=== PATIENT | female | born 1985 | race African-American/Black ===

== ENCOUNTER 2020-09-30 13:28 | Emergency (ER) | payer MEDICAID ==
[~2020-09-30] VITALS: Ht 175.3 cm; Wt 59.0 kg
[2020-09-30] MEDS ORDERED: ACETAMINOPHEN/CODEINE#3 (300/30mg) TAB PO ONE (15:00)
[2020-09-30] MEDS ORDERED: cloNIDine HCL 0.1 MG TAB PO ONE (15:00)
[2020-09-30] MEDS ORDERED: KETOROLAC TROMETH 30 MG/ML 1ML VIAL IV ONE (15:00)
[2020-09-30] MEDS ORDERED: CLINDAMYCIN 600MG IV 50 ML IV ONE (15:00)
[2020-09-30 16:15] VITALS: BP 158/118
== END 2020-09-30 16:27 | disposition home or self-care (01) ==
LOC: ER 13:28
DX: H92.01 Otalgia, right ear (principal); K04.7 Periapical abscess without sinus; I10 Essential (primary) hypertension; F17.210 Nicotine dependence, cigarettes, uncomplicated
CPT/HCPCS: 96365; 96375; 99284; J1885; J3490

== ENCOUNTER 2021-04-16 09:53 | Emergency (ER) | payer MEDICAID, OTHER ==
[~2021-04-16] VITALS: Ht 175.3 cm; Wt 61.2 kg
[2021-04-16] MEDS ORDERED: ACETAMINOPHEN 325 MG TAB PO ONE (11:00)
[2021-04-16 12:46] VITALS: BP 164/127
== END 2021-04-16 13:19 | disposition home or self-care (01) ==
LOC: ER 09:53
DX: J06.9 Acute upper respiratory infection, unspecified (principal); N39.0 Urinary tract infection, site not specified; N76.0 Acute vaginitis; F17.210 Nicotine dependence, cigarettes, uncomplicated; Z20.822 Contact with and (suspected) exposure to COVID-19
CPT/HCPCS: 36415; 71045; 81002; 81025; 87426

== ENCOUNTER 2021-09-19 10:30 | Emergency (ER) | payer OTHER ==
[~2021-09-19] VITALS: Ht 167.6 cm; Wt 59.0 kg
[2021-09-19 11:09] LABS: Basophils # (auto) 0.1 10 ^3/uL (0-0.2); Basophils % (auto) 1.9 % (0.0-2.0); Eosinophils # (auto) 0 10 ^3/uL (0-0.8); Eosinophils % (auto) 0.9 % (0.0-7.0); Hematocrit 34.7 % (36.0-46.0); Hemoglobin 11.4 g/dL (12.2-16.2); Lymphocytes % (auto) 50.5 % (10.0-50.0); Mean Corpuscular Hemoglobin 31.6 pg (28.0-32.0); Mean Corpuscular Hgb Conc. 32.8 g/dL (32.0-36.0); Mean Corpuscular Volume 96.3 fL (80.0-100.0); Monocytes # (auto) 0.5 10 ^3/uL (0-1.3); Monocytes % (auto) 12.2 % (0.0-12.0); Neutrophils # (auto) 1.3 10 ^3/uL (1.6-8.6); Neutrophils % (auto) 34.5 % (37.0-80.0); Nucleated Red Blood Cells % 0.3 %; Red Blood Cells 3.61 10^6/uL (4.0-5.20); Red Cell Distribution Width 15.6 % (11.8-14.3); White Blood Cell 3.9 10^3/uL (4.4-10.8)
[2021-09-19 11:25] LABS: Albumin 4.4 g/dL (3.4-5.0); Calcium 9.6 mg/dL (8.5-10.1); Potassium 4.1 mmol/L (3.5-5.1)
[2021-09-19 11:30] LABS: BUN/Creatinine Ratio 9.7; Bilirubin, Total 0.3 mg/dL (0.2-1.0); Total Protein 9.1 g/dL (6.4-8.2)
[2021-09-19 15:19] LABS: Urine Bacteria FEW /hpf (None Seen); Urine Blood 2+ /uL (Negative); Urine Hyaline Cast FEW /lpf (0 - 2); Urine Mucus FEW (None Seen); Urine Specific Gravity 1.011 (1.001-1.035); Urine WBC 1 /hpf (0 - 5)
[2021-09-19 16:50] VITALS: BP 132/65
== END 2021-09-19 16:56 | disposition home or self-care (01) ==
LOC: ER 10:30
DX: D64.9 Anemia, unspecified (principal); R74.01 Elevation of levels of liver transaminase levels; I10 Essential (primary) hypertension; E11.9 Type 2 diabetes mellitus without complications; F17.210 Nicotine dependence, cigarettes, uncomplicated; Z20.822 Contact with and (suspected) exposure to COVID-19
CPT/HCPCS: 36415; 70486; 71045; 80053; 81001; 85025; 87426

== ENCOUNTER 2022-02-06 18:46 | Inpatient (IN) | payer OTHER ==
[~2022-02-06] VITALS: Ht 175.3 cm; Wt 57.8 kg
[2022-02-06 19:26] LABS: Basophils # (auto) 0.1 10 ^3/uL (0-0.2); Basophils % (auto) 0.9 % (0.0-2.0); Eosinophils # (auto) 0.1 10 ^3/uL (0-0.8); Hematocrit 35.3 % (36.0-46.0); Hemoglobin 11.8 g/dL (12.2-16.2); Lymphocytes # (auto) 0.6 10 ^3/uL (0.4-5.4); Lymphocytes % (auto) 11.5 % (10.0-50.0); Mean Corpuscular Hemoglobin 32.8 pg (28.0-32.0); Mean Corpuscular Hgb Conc. 33.4 g/dL (32.0-36.0); Mean Corpuscular Volume 98.3 fL (80.0-100.0); Monocytes # (auto) 0.6 10 ^3/uL (0-1.3); Neutrophils # (auto) 4.3 10 ^3/uL (1.6-8.6); Neutrophils % (auto) 76.6 % (37.0-80.0); Nucleated Red Blood Cells % 0.4 %; Red Blood Cells 3.59 10^6/uL (4.0-5.20); Red Cell Distribution Width 15.2 % (11.8-14.3); White Blood Cell 5.6 10^3/uL (4.4-10.8)
[2022-02-06 19:36] LABS: Urine Bacteria NONE SEEN /hpf (None Seen); Urine Blood 1+ /uL (Negative); Urine Hyaline Cast MANY /lpf (0 - 2); Urine Mucus FEW (None Seen); Urine Specific Gravity 1.031 (1.001-1.035); Urine WBC 4 /hpf (0 - 5)
[2022-02-06 19:42] LABS: Albumin 5.2 g/dL (3.4-5.0); BUN/Creatinine Ratio 11.6; Calcium 10.5 mg/dL (8.5-10.1); Potassium 4.3 mmol/L (3.5-5.1)
[2022-02-06 19:43] LABS: Amphetamine Screen, Urine NEGATIVE (NEGATIVE); Barbiturate Scree,Urine NEGATIVE (NEGATIVE); Benzodiazephine Screen, Urine NEGATIVE (NEGATIVE); Cannabinoid Screen, Urine POSITIVE (NEGATIVE); Cocaine Screen, Urine NEGATIVE (NEGATIVE); Phencyclidine Screen, Urine NEGATIVE (NEGATIVE)
[2022-02-06 19:45] LABS: Bilirubin, Total 0.5 mg/dL (0.2-1.0); Total Protein 10.1 g/dL (6.4-8.2)
[2022-02-06 19:51] LABS: Opiate Scree,Urine NEGATIVE (NEGATIVE)
[2022-02-06] MEDS ORDERED: D5W/SOD CHLO 0.9% 1,000 ML IV ONE (21:15)
[2022-02-06] MEDS ORDERED: ONDANSETRON HCL 4 MG/2 ML VIAL IV ONE (21:15)
[2022-02-06] MEDS ORDERED: MORPHINE SULFATE 4 MG/ML SYR/VIAL IV ONE (21:15)
[2022-02-06] MEDS ORDERED: THIAMINE 100mg/ml INJ (200mg/2ml VIAL) IV ONE ×2 (21:15→22:15)
[2022-02-06] MEDS ORDERED: SODIUM CHLORIDE 0.9% 1,000 ML IVB ONE (21:15)
[2022-02-06] MEDS ORDERED: FOLIC ACID 1 MG in D5W 5% 50 ML INJ ONE (21:15)
[2022-02-06 22:53] LABS: Magnesium 2.3 mg/dL (1.6-2.6)
[2022-02-07] MEDS ORDERED: PANTOPRAZOLE 40 MG/10 ML VIAL INJ IV ONE (00:45)
[2022-02-07] MEDS ORDERED: SODIUM CHLORIDE 0.9% 1,000 ML IV ONE ×2 (00:45)
[2022-02-07 05:00] VITALS: BP 144/104
[2022-02-07] MEDS: MORPHINE SULFATE 4 MG/ML SYR/VIAL IV PRN ×5 (05:40→23:53)
[2022-02-07] MEDS ORDERED: METO-158 PO (06:43)
[2022-02-07] MEDS ORDERED: LOSA25TA38 PO (06:43)
[2022-02-07] MEDS ORDERED: GABA-339 PO (06:43)
[2022-02-07] MEDS ORDERED: MONT5CHW23 PO (06:44)
[2022-02-07 09:00] VITALS: BP 159/111
[2022-02-07 09:16] LABS: Basophils # (auto) 0 10 ^3/uL (0-0.2); Basophils % (auto) 0.7 % (0.0-2.0); Eosinophils # (auto) 0 10 ^3/uL (0-0.8); Eosinophils % (auto) 0.8 % (0.0-7.0); Hematocrit 29.4 % (36.0-46.0); Hemoglobin 9.6 g/dL (12.2-16.2); Lymphocytes # (auto) 0.8 10 ^3/uL (0.4-5.4); Lymphocytes % (auto) 16.2 % (10.0-50.0); Mean Corpuscular Hemoglobin 32.1 pg (28.0-32.0); Mean Corpuscular Hgb Conc. 32.7 g/dL (32.0-36.0); Monocytes # (auto) 0.6 10 ^3/uL (0-1.3); Monocytes % (auto) 11.8 % (0.0-12.0); Neutrophils # (auto) 3.3 10 ^3/uL (1.6-8.6); Neutrophils % (auto) 70.5 % (37.0-80.0); Nucleated Red Blood Cells % 0.2 %; Red Cell Distribution Width 15.2 % (11.8-14.3); White Blood Cell 4.7 10^3/uL (4.4-10.8)
[2022-02-07 09:34] LABS: Calcium 8.8 mg/dL (8.5-10.1); Potassium 3.5 mmol/L (3.5-5.1)
[2022-02-07 09:43] LABS: BUN/Creatinine Ratio 15.2; Bilirubin, Total 0.5 mg/dL (0.2-1.0)
[2022-02-07] MEDS: PANTOPRAZOLE 40 MG/10 ML VIAL INJ IV SCH (10:00)
[2022-02-07] MEDS: MULTIPLE VITAMIN TAB PO SCH (10:00)
[2022-02-07] MEDS: ONDANSETRON HCL 4 MG/2 ML VIAL IV PRN ×4 (11:30→23:52)
[2022-02-07] MEDS: SODIUM CHLORIDE 0.9% 1,000 ML IV SCH ×2 (11:30→17:38)
[2022-02-07 13:00] VITALS: BP 139/106
[2022-02-07] MEDS: FOLIC ACID 1 MG, MULTIPLE VITAMIN 10 ML, MAGNESIUM SULF SDV 50% 8 MEQ, THIAMINE INJ 100... INJ SCH ×5 (15:32)
[2022-02-07 17:00] VITALS: BP 151/108
[2022-02-07 21:37] VITALS: BP 150/113
[2022-02-07] MEDS: METOPROLOL TARTRATE 50 MG TAB PO SCH (21:38)
[2022-02-08] MEDS: SODIUM CHLORIDE 0.9% 1,000 ML IV SCH ×3 (00:50→14:10)
[2022-02-08 04:52] VITALS: BP 154/64
[2022-02-08 07:48] LABS: Basophils # (auto) 0 10 ^3/uL (0-0.2); Basophils % (auto) 1.3 % (0.0-2.0); Eosinophils # (auto) 0 10 ^3/uL (0-0.8); Eosinophils % (auto) 1.3 % (0.0-7.0); Hematocrit 30.6 % (36.0-46.0); Hemoglobin 10.1 g/dL (12.2-16.2); Lymphocytes # (auto) 0.9 10 ^3/uL (0.4-5.4); Lymphocytes % (auto) 33.4 % (10.0-50.0); Mean Corpuscular Hemoglobin 32.9 pg (28.0-32.0); Mean Corpuscular Hgb Conc. 33.1 g/dL (32.0-36.0); Mean Corpuscular Volume 99.3 fL (80.0-100.0); Monocytes # (auto) 0.3 10 ^3/uL (0-1.3); Monocytes % (auto) 9.9 % (0.0-12.0); Neutrophils # (auto) 1.4 10 ^3/uL (1.6-8.6); Neutrophils % (auto) 54.1 % (37.0-80.0); Nucleated Red Blood Cells % 0.4 %; Red Blood Cells 3.08 10^6/uL (4.0-5.20); White Blood Cell 2.7 10^3/uL (4.4-10.8)
[2022-02-08 08:04] LABS: % Iron Saturation 35.1 % (15-50)
[2022-02-08 08:05] LABS: Albumin 4.2 g/dL (3.4-5.0); BUN/Creatinine Ratio 13.7; Bilirubin, Total 0.9 mg/dL (0.2-1.0); Calcium 9.3 mg/dL (8.5-10.1); Phosphorus 1.3 mg/dL (2.5-4.90); Total Protein 7.9 g/dL (6.4-8.2)
[2022-02-08] MEDS ORDERED: LORazepam 2MG/ML-1ML VIAL IV PRN (08:15)
[2022-02-08] MEDS ORDERED: LORazepam 2MG/ML-1ML VIAL IV ONE (08:15)
[2022-02-08 08:20] VITALS: BP 150/83
[2022-02-08 08:22] LABS: Potassium 2.8 mmol/L (3.5-5.1)
[2022-02-08] MEDS: MULTIPLE VITAMIN TAB PO SCH (09:02)
[2022-02-08] MEDS: METOPROLOL TARTRATE 50 MG TAB PO SCH (09:03)
[2022-02-08] MEDS: PANTOPRAZOLE 40 MG/10 ML VIAL INJ IV SCH (09:03)
[2022-02-08] MEDS ORDERED: POTASSIUM CHL 10MEQ/50ML 50 ML IV SCH (09:30)
[2022-02-08] MEDS ORDERED: QUEtiapine FUMARATE 25 MG TAB PO ONE (10:00)
[2022-02-08] MEDS ORDERED: POTASSIUM CHL 20 Meq TABLET PO SCH (10:45)
[2022-02-08] MEDS: FOLIC ACID 1 MG, MULTIPLE VITAMIN 10 ML, MAGNESIUM SULF SDV 50% 8 MEQ, THIAMINE INJ 100... INJ SCH ×5 (12:00)
[2022-02-08] MEDS ORDERED: chlordiazePOXIDE HCL 25 MG CAP PO SCH (14:00)
[2022-02-08] MEDS ORDERED: QUEtiapine FUMARATE 25 MG TAB PO SCH (22:00)
[2022-02-09 13:18] LABS: Hepatitis A Ab IgM Negative; Hepatitis B Core IgM Negative; Hepatitis C Antibody Negative (Negative)
[2022-02-09 13:25] LABS: Folate (Folic Acid) > 24.00 ng/mL (5.38-24)
== END 2022-02-08 21:10 | disposition left against medical advice (07) | DRG 282 ==
LOC: ER 18:46 → OVERFLOW 02-07 00:45 → WEST WING 02-07 05:01
PROVIDERS: ADMIT Internal Medicine; ATTEND Internal Medicine
DX: K85.20 Alcohol induced acute pancreatitis without necrosis or infection (principal); N17.9 Acute kidney failure, unspecified; D69.6 Thrombocytopenia, unspecified; K83.8 Other specified diseases of biliary tract; D64.9 Anemia, unspecified; E11.9 Type 2 diabetes mellitus without complications; D25.9 Leiomyoma of uterus, unspecified; E78.5 Hyperlipidemia, unspecified; F12.90 Cannabis use, unspecified, uncomplicated; F17.210 Nicotine dependence, cigarettes, uncomplicated; Z53.29 Procedure and treatment not carried out because of patient's decision for other reasons; E83.52 Hypercalcemia; R74.01 Elevation of levels of liver transaminase levels; F10.239 Alcohol dependence with withdrawal, unspecified; Z20.822 Contact with and (suspected) exposure to COVID-19; I10 Essential (primary) hypertension; K52.9 Noninfective gastroenteritis and colitis, unspecified; R63.4 Abnormal weight loss; R79.89 Other specified abnormal findings of blood chemistry; Z68.1 Body mass index [BMI] 19.9 or less, adult; Z79.899 Other long term (current) drug therapy; Z80.8 Family history of malignant neoplasm of other organs or systems; Z83.3 Family history of diabetes mellitus; Y90.9 Presence of alcohol in blood, level not specified
CPT/HCPCS: 36415; 74181; 80053; 80074; 80307; 80320; 81001; 82140; 82150; 82378; 82607; 82746; 82977; 83540; 83550; 83605; 83690; 83735; 84100; 84425; 84478; 84702; 85025; 86301; 86304; 86644; 86645; 86703; 96361; 96365; 96375; C9113; G0378; J2405; J7060

== ENCOUNTER 2022-02-08 22:33 | Emergency (ER) | payer OTHER ==
[~2022-02-08] VITALS: Ht 175.3 cm; Wt 51.3 kg
[~2022-02-08 22:33] MED LIST: GABA-339 PO; LOSA25TA38 PO; METO-158 PO; MONT5CHW23 PO
[2022-02-08 22:45] VITALS: BP 158/106
[2022-02-09 00:07] LABS: Albumin 4.2 g/dL (3.4-5.0); BUN/Creatinine Ratio 13.1; Basophils # (auto) 0 10 ^3/uL (0-0.2); Basophils % (auto) 0.8 % (0.0-2.0); Calcium 9.5 mg/dL (8.5-10.1); Eosinophils # (auto) 0 10 ^3/uL (0-0.8); Eosinophils % (auto) 1.1 % (0.0-7.0); Hematocrit 29.8 % (36.0-46.0); Hemoglobin 9.8 g/dL (12.2-16.2); Lymphocytes % (auto) 27.5 % (10.0-50.0); Mean Corpuscular Hemoglobin 32.6 pg (28.0-32.0); Mean Corpuscular Hgb Conc. 32.9 g/dL (32.0-36.0); Mean Corpuscular Volume 99.2 fL (80.0-100.0); Monocytes # (auto) 0.6 10 ^3/uL (0-1.3); Monocytes % (auto) 16.6 % (0.0-12.0); Neutrophils # (auto) 1.9 10 ^3/uL (1.6-8.6); Nucleated Red Blood Cells % 0.3 %; Potassium 3.4 mmol/L (3.5-5.1); Red Blood Cells 3.01 10^6/uL (4.0-5.20); Red Cell Distribution Width 15.1 % (11.8-14.3); White Blood Cell 3.5 10^3/uL (4.4-10.8)
[2022-02-09 00:10] LABS: Bilirubin, Total 0.4 mg/dL (0.2-1.0); Total Protein 7.9 g/dL (6.4-8.2)
== END 2022-02-09 01:16 | disposition left against medical advice (07) ==
LOC: ER 22:35
DX: R10.9 Unspecified abdominal pain (principal); Z53.21 Procedure and treatment not carried out due to patient leaving prior to being seen by health care provider
CPT/HCPCS: 36415; 80053; 83690; 85025

== ENCOUNTER 2022-02-17 19:30 | Emergency (ER) | payer OTHER ==
[~2022-02-17] VITALS: Ht 175.3 cm; Wt 53.5 kg
[2022-02-17 20:27] LABS: Basophils # (auto) 0.1 10 ^3/uL (0-0.2); Eosinophils # (auto) 0 10 ^3/uL (0-0.8); Monocytes # (auto) 0.9 10 ^3/uL (0-1.3)
[2022-02-17 20:29] LABS: Basophils % (auto) 1.4 % (0.0-2.0); Eosinophils % (auto) 0.6 % (0.0-7.0); Hematocrit 23.9 % (36.0-46.0); Hemoglobin 7.8 g/dL (12.2-16.2); Lymphocytes # (auto) 1.4 10 ^3/uL (0.4-5.4); Lymphocytes % (auto) 21.5 % (10.0-50.0); Mean Corpuscular Hemoglobin 31.5 pg (28.0-32.0); Mean Corpuscular Hgb Conc. 32.6 g/dL (32.0-36.0); Mean Corpuscular Volume 96.5 fL (80.0-100.0); Neutrophils # (auto) 4.2 10 ^3/uL (1.6-8.6); Neutrophils % (auto) 63.5 % (37.0-80.0); Nucleated Red Blood Cells % 0.1 %; Red Blood Cells 2.48 10^6/uL (4.0-5.20); Red Cell Distribution Width 14.8 % (11.8-14.3); White Blood Cell 6.6 10^3/uL (4.4-10.8)
[2022-02-17 20:42] LABS: Albumin 2.9 g/dL (3.4-5.0); BUN/Creatinine Ratio 7.6; Calcium 7.5 mg/dL (8.5-10.1); Potassium 3.4 mmol/L (3.5-5.1)
[2022-02-17 20:45] LABS: Bilirubin, Total 0.1 mg/dL (0.2-1.0); Total Protein 6.1 g/dL (6.4-8.2)
[2022-02-17] MEDS ORDERED: FUROSEMIDE 40 MG/4 ML VIAL IV ONE (21:30)
[2022-02-17] MEDS ORDERED: FUROSEMIDE 20 MG/2 ML VIAL IV ONE (21:45)
[2022-02-17] MEDS ORDERED: FUROSEMIDE 100 MG/10ML VIAL IV ONE (23:15)
[2022-02-17] MEDS ORDERED: FURO1TAB33 PO (23:32)
[2022-02-18 00:13] VITALS: BP 160/110
== END 2022-02-18 00:39 | disposition home or self-care (01) ==
LOC: ER 19:32
DX: R60.9 Edema, unspecified (principal); D64.9 Anemia, unspecified; E11.9 Type 2 diabetes mellitus without complications; E78.5 Hyperlipidemia, unspecified; I10 Essential (primary) hypertension; F17.210 Nicotine dependence, cigarettes, uncomplicated
CPT/HCPCS: 36415; 80053; 83880; 85025; 85379; 96374; 99283; J1940

== ENCOUNTER 2023-11-29 21:11 | Emergency (ER) | payer MEDICAID, OTHER ==
[~2023-11-29] VITALS: Ht 162.6 cm; Wt 54.7 kg
[~2023-11-29 21:11] MED LIST changes: +FURO1TAB33 PO; +LOSA25TA15 PO; -LOSA25TA38 PO; +MONT5CHW12 PO; -MONT5CHW23 PO
[2023-11-29] MEDS ORDERED: SODIUM CHLORIDE 0.9% 1,000 ML IV ONE (22:00)
[2023-11-29 23:10] VITALS: BP 145/88; PULSE 85; RESP 18; TEMP 98.4; O2SAT 100
[2023-11-29 23:39] LABS: Hematocrit 38.9 % (36.0-46.0); Hemoglobin 12.5 g/dL (12.2-16.2); Mean Corpuscular Hgb Conc. 32.2 g/dL (32.0-36.0); Mean Corpuscular Volume 96.1 fL (80.0-100.0); Red Blood Cells 4.05 10^6/uL (4.0-5.20); Red Cell Distribution Width 15.9 % (11.8-14.3); White Blood Cell 4.1 10^3/uL (4.4-10.8)
[2023-11-29 23:43] LABS: Band Neutrophils % (manual) 0; Basophils % (manual) 0 (0.0-2.0); Blast Cells 0; Eosinophils % (manual) 0 (0-7); Metamyelocytes % 0; Myelocytes % 0; Promyelocytes % 0; Reactive Lymphocytes 0
[2023-11-29 23:54] LABS: Alanine Aminotransferase 184 U/L (7-40); Albumin 5.3 g/dL (3.2-4.8); Alkaline Phosphatase 203 U/L (46-116); Anion Gap 14 (5-15); Aspartate Aminotransferase 768 U/L (13-40); BUN/Creatinine Ratio 20.6 (10.0-20.0); Blood Urea Nitrogen 13 mg/dL (9-23); Calcium 9.7 mg/dL (8.7-10.4); Carbon Dioxide 22 mmol/L (20-30); Chloride 103 mmol/L (98-107); Glucose 88 mg/dL (74-106); Potassium 3.9 mmol/L (3.5-5.1); Sodium 139 mmol/L (136-145)
[2023-11-29 23:55] LABS: Bilirubin, Total 0.3 mg/dL (0.2-1.0); Total Protein 8.5 g/dL (5.7-8.2)
[2023-11-30 00:33] LABS: Lymphocytes % (manual) 60 (10.0-50.0); Monocytes % (manual) 6 (0-12); Platelet Estimate Adequate
== END 2023-11-30 01:19 | disposition home or self-care (01) ==
LOC: ER 21:11 → EDBD 21:11 → ER 11-30 01:06
DX: F10.129 Alcohol abuse with intoxication, unspecified (principal); R10.2 Pelvic and perineal pain; R51.9 Headache, unspecified; E11.9 Type 2 diabetes mellitus without complications; E78.5 Hyperlipidemia, unspecified; I10 Essential (primary) hypertension; Y90.8 Blood alcohol level of 240 mg/100 ml or more
CPT/HCPCS: 36415; 70450; 72125; 80053; 84702; 85007; 85027; 96360; 99284; J7030

== ENCOUNTER 2025-01-15 10:58 | Inpatient (IN) | payer MEDICAID ==
[~2025-01-15] VITALS: Ht 172.7 cm; Wt 68.7 kg
[~2025-01-15 10:58] MED LIST changes: +AUG875T PO; +DOXY1CAP57 PO; +FLUO-125 PO; +HYDR-4902 PO; +LOSA-533 PO; -LOSA25TA15 PO; +MET500T PO; +ZOFR4T PO
--- NOTE | 2025-01-15 11:24 | ED.PDOC ---
History of Present Illness HPI Comments 39-year-old female with PMHx HTN, Insomnia, Anxiety, Depression presents with a chief complaint of seizure activity. Per EMS, family states that patient was sitting at home and "started to slump over and tense up". Family describes patient having a tonic-clonic like seizure that lasted 3 minutes. Patient cannot recall the events. Patient has only stated complaint of headache at this time. Patient mentions that she has never had a seizure before. Patient does have oral trauma. No other symptoms or modifying factors present at this time. Chief Complaint: Seizure Time Seen by MD: 11:10 Primary Care Provider: UNKNOWN Reviewed Notes: Medications, Allergies Allergies: Coded Allergies: NO KNOWN ALLERGIES (Unverified , 09/30/20) Home Meds Active Scripts Amoxicillin & Pot Clavulanate (AUGMENTIN TABLET) 875 Mg Tb, 875 MG PO BID for 5 Days, #10 TAB Prov:BRYNN ATKINS GARMENT PRESSER 07/10/24 Hydrocodone-Acetaminophen (Hydrocodone Bitartrate/AC 5-325 mg) 1 Tab Tab, 1 TAB PO QID, #20 TAB Prov:NUZHAT DOYLE MD 05/15/24 Ondansetron Odt 4MG Tab (ZOFRAN PO) 4 Mg Tb, 4 MG PO QID PRN, #20 TAB ODT TAB-DISSOLVE IN MOUTH, THEN SWALLOW Prov:NUZHAT DOYLE MD 05/15/24 Doxycycline Monohydrate (Doxycycline Monohydrate) 100 Mg Cap, 1 CAP PO BID for 10 Days, #20 CAP Prov:PALACIOSPATRICIOALDA Q YARD PILOT 03/12/24 Metronidazole (Metronidazole) 500 Mg Tab, 1 TAB PO TID for 10 Days, #30 TAB Prov:PITO PALACIOSA Q YARD PILOT 03/12/24 Furosemide (Lasix) 20 Mg Tb, 1 TAB PO DAILY for 5 Days, #5 TAB 1 Refill Prov:FAMILIA MALDONADO DO 02/17/22 Reported Medications Fluoxetine Hcl (Fluoxetine Hcl) 20 Mg Cap, 1 TAB PO DAILY for 30 Days, MG 05/13/24 Montelukast Sodium (Singulair) 5 Mg Chw, 10 MG PO, TAB 02/07/22 Gabapentin (Gabapentin) 600 Mg Tab, 600 MG PO DAILY for 30 Days, MG 02/07/22 Losartan Potassium (Losartan Potassium) 25 Mg Tab, 25 MG PO DAILY for 30 Days, MG 3/12/22 Metoprolol Tartrate (Metoprolol Tartrate) 50 Mg Tab, 50 MG PO BID for 30 Days, MG 02/07/22 Information Source: Patient, Emergency Med Personnel Mode of Arrival: EMS Severity: Moderate Timing: Minutes Duration: Since onset Prehospital treatment: None Past Medical History PAST MEDICAL HISTORY: Anemia, Anxiety, Depression, DM, High Lipids, HTN Past Medical History (Other): Insomnia Surgical History (Other): Fibroids ASSOCIATE ACCOUNT EXECUTIVE History: Uterine Fibroids Family History Family History: Family hx of Cancer, Family hx of HTN Social History Smoker: Cigarettes Alcohol: Occasionally Drugs: Marijuana Lives In: Home Constitutional: denies: chills, diaphoresis, fatigue, fever, malaise, sweats, weakness, others EENTM: denies: blurred vision, double vision, ear bleeding, ear discharge, ear drainage, ear pain, ear ringing, eye pain, eye redness, hearing loss, mouth pain, mouth swelling, nasal discharge, nose bleeding, nose congestion, nose pain, photophobia, tearing, throat pain, throat swelling, voice changes, others Respiratory: denies: cough, hemoptysis, orthopnea, SOB at rest, shortness of breath, SOB with excertion, stridor, wheezing, others Cardiovascular: denies: chest pain, dizzy spells, diaphoresis, Dyspnea on exertion, edema, irregular heart beat, left arm pain, lightheadedness, palpitations, PND, syncope, others Gastrointestinal: denies: abdomen distended, abdominal pain, blood streaked bowels, constipated, diarrhea, dysphagia, difficulty swallowing, hematemesis, melena, nausea, poor appetite, poor fluid intake, rectal bleeding, rectal pain, vomiting, others Genitourinary: denies: abnormal vagina bleeding, burning, dyspareunia, dysuria, flank pain, frequency, hematuria, incontinence, pain, , vagina d ischarge, urgency, others Neurological: reports: seizure; denies: dizziness, fainting, headache, left sided numbness, left sided weakness, numbness, paresthesia, pre-existing deficit, right sided numbness, right sided weakness, speech problems, tingling, tremors, weakness, others Musculoskeletal: denies: back pain, gout, joint pain, joint swelling, muscle pain, muscle stiffness, neck pain, others Integumetry: denies: bruises, change in color, change in hair/nails, dryness, laceration, lesions, lumps, rash, wounds, others Allergic/Immunocompromised: denies: Difficulty Healing, Frequent Infections, Hives, Itching, others Hematologic/Lymphatic: denies: anemia, blood clots, easy bleeding, easy bruising, swollen glands, others Endocrine: denies: excessive hunger, excessive sweating, excessive thirst, excessive urination, flushing, intolerance to cold, intolerance to heat, unexplained weight gain, unexplained weight loss, others Psychiatric: denies: anxiety, bipolar disorder, depression, hopeless, panic disorder, schizophrenia, sleepless, suicidal, others All Other Systems: Reviewed and Negative Physical Exam General Appearance: Moderate Distress, Normal HEENT: Normal ENT Inspection, Pharynx Normal, TMs Normal Neck: Full Range of Motion, Non-Tender, Normal, Normal Inspection Respiratory: Chest Non-Tender, Lungs Clear, No Accessory Muscle Use, No Respi ratory Distress, Normal Breath Sounds Cardiovascular: No Edema, No JVD, No Murmur, No Gallop, Normal Peripheral Pulses, Regular Rate/Rhythm Breast Exam: Deferred Gastrointestinal: No Organomegaly, Non Tender, No Pulsatile Mass, Normal Bowel Sounds, Soft Genitalia: Deferred Pelvic: Deferred Rectal: Deferred Extremities: No calf tenderness, Normal capillary refill, Normal inspection, Normal range of motion, Non-tender, No pedal edema Musculoskeletal : Apperance: Normal Neurologic: project internship II-XII nml as Tested, Disoriented (Postictal), No Motor Deficits, Normal Affect, Normal Mood, No Sensory Deficits Cerebellar Function: NOT DONE Reflexes: NOT DONE Skin: Dry, Normal Color, Warm, Wounds (Tongue injury) Peripheral Pulses: 3+ Radial (R), 3+ Radial (L) Lymphatic: No Adenopathy Was a procedure done? Was a procedure done?: No Differential Dx Considerations may include: Seizure Electrolyte imbalance X-Ray, Labs, Meds, VS Vital Signs Date Time Temp Pulse Resp B/P (MAP) Pulse Ox O2 Delivery O2 Flow Rate FiO2 01/15/25 11:25 96 Room Air* 0 21 01/15/25 11:23 102 25 140/98 (112) 98 01/15/25 11:02 98.1 100 16 154/122 (133) 96 Patient is slightly disoriented. Had a seizure. First time she had a seizure. Vitals stable. She does have tongue injury. No sign of any other injuries. Slightly tachycardia. Blood pressure elevated. History of hypertension. Saturation pristine on room air. EKG reviewed does not show any acute changes. Explained to the patient. Continue cardiac monitoring. Time of 1ST Reevaluation: 11:40 Reevaluation 1ST: Unchanged Patient Education/Counseling: Diagnosis, Treatment, Prognosis Family Education/Counseling: Diagnosis, Treatment, Prognosis Departure 1 Departure Time of Disposition: 11:43 Impression: Primary Impression: Metabolic encephalopathy Additional Impression: Seizure Disposition: ADMITTED INPATIENT Admit to: Med Surg Condition: Guarded Critical Care Note Critical Care Time?: No Stability Stability form required: No Heart Score Heart Score: Heart Score Response (Comments) Value History Slightly Suspicious 0 EKG Normal 0 Age <45 0 Risk Factors 1 or 2 risk factors 1 Troponin N/A 0 Total 1 I personally scribed for DIANE DIXON MD ([email or web address]) on 01/15/25 at 11:24. Electronically submitted by Jose Kilgore ([email or web address]). DIANE DIXON MD Jan 15, 2025 11:24
[2025-01-15 11:25] VITALS: O2SAT 96
[2025-01-15] MEDS: SODIUM CHLORIDE 0.9% 1,000 ML IV ONE (11:56)
[2025-01-15 12:18] LABS: Anion Gap 12 (5-15); Carbon Dioxide 25 mmol/L (20-31); Chloride 99 mmol/L (98-107); Potassium 4.2 mmol/L (3.5-5.1)
[2025-01-15 12:20] LABS: Calcium 10.1 mg/dL (8.7-10.4)
[2025-01-15 12:24] LABS: Sodium 136 mmol/L (136-145)
[2025-01-15 12:25] LABS: BUN/Creatinine Ratio 9.2 (10.0-20.0); Glucose 93 mg/dL (74-106)
--- NOTE | 2025-01-15 12:25 | DVH ---
CT HEAD WITHOUT CONTRAST INDICATION: seizure EXAM DATE: 01/15/2025 12:08 PM COMPARISON: CT HEAD WITHOUT CONTRAST on DOS: 11/29/23 RADIATION DOSE: CTDIvol: 56 mGy, DLP: 994 mGy*cm PROCEDURE: CT scans of the head were obtained from the vertex to the skull base. Sagittal and coronal reconstructions were provided. All CT scans at this medical facility are performed using dose modulation techniques as appropriate t o a performed exam including the following: Automated exposure control was utilized; adjustment of th e MA and/or KV according to patient size; and use of iterative reconstruction technique. FINDINGS: There is sulcal and ventricular prominence. The brainshows normal morphology and helms-whit e matter differentiation, without intracranial hemorrhage, extra-axial fluid collection, mass effect or acute large vessel infarct. The ventricles are normal in size. The basal cisterns are patent. The skull and visible facial bones are intact. The paranasal sinuses, mastoid air cells and middle ear ca vities are well-aerated. The soft tissues of the scalp are unremarkable. IMPRESSION: No acute intracranial abnormality.
[2025-01-15] MEDS: LORazepam 2MG/ML-1ML VIAL IV ONE (12:27)
[2025-01-15 12:29] LABS: Blood Urea Nitrogen 8 mg/dL (9-23)
[2025-01-15 14:13] LABS: Basophils # (auto) 0 10 ^3/uL (0-0.2); Basophils % (auto) 0.5 % (0.0-2.0); Eosinophils # (auto) 0 10 ^3/uL (0-0.8); Eosinophils % (auto) 0.5 % (0.0-7.0); Hematocrit 33.1 % (36.0-46.0); Hemoglobin 10.8 g/dL (12.2-16.2); Lymphocytes # (auto) 1.6 10 ^3/uL (0.4-5.4); Lymphocytes % (auto) 29.1 % (10.0-50.0); Mean Corpuscular Hemoglobin 29.2 pg (28.0-32.0); Mean Corpuscular Hgb Conc. 32.6 g/dL (32.0-36.0); Mean Corpuscular Volume 89.8 fL (80.0-100.0); Monocytes # (auto) 0.8 10 ^3/uL (0-1.3); Monocytes % (auto) 14.9 % (0.0-12.0); Nucleated Red Blood Cells % 0.2 %; Platelet Count (auto) 185 10^3/uL (140-450); Red Blood Cells 3.68 10^6/uL (4.0-5.20); Red Cell Distribution Width 15.8 % (11.8-14.3); White Blood Cell 5.5 10^3/uL (4.4-10.8)
[2025-01-15 14:47] LABS: Urine Bacteria None Seen /hpf (None Seen)
[2025-01-15 15:07] LABS: Urine Blood Negative /uL (Negative); Urine Clarity Clear (Clear); Urine Color Light-Yellow (Yellow); Urine Mucus FEW (None Seen); Urine Protein, UAD TRACE (Negative); Urine Specific Gravity 1.014 (1.001-1.035); Urine Squamous Epithelial Cell FEW /hpf (<5); Urine Urobilinogen Normal (Negative); Urine WBC 1 /HPF (0-5)
[2025-01-15] MEDS ORDERED: QUET50TA27 PO (15:21)
[2025-01-15] MEDS ORDERED: HYDR-3682 PO (15:21)
[2025-01-15] MEDS ORDERED: FLUO60TA PO (15:21)
[2025-01-15] MEDS ORDERED: OLAN1TAB82 PO (15:23)
[2025-01-15] MEDS ORDERED: OXCA300T50 PO (15:32)
[2025-01-15] MEDS ORDERED: OXCA600T40 PO (15:32)
[2025-01-15] MEDS ORDERED: ONDANSETRON HCL 4 MG/2 ML VIAL IV PRN (15:45)
[2025-01-15] MEDS ORDERED: NITROGLYCERIN 0.4 MG SL TAB SL PRN (15:45)
[2025-01-15] MEDS ORDERED: MORPHINE SULFATE INJ 2 MG/ml SYRG IV PRN (15:45)
[2025-01-15] MEDS ORDERED: ACETAMINOPHEN 325 MG TAB PO PRN (15:45)
[2025-01-15] MEDS ORDERED: DOCUSATE SOD 100 MG CAP PO PRN (15:45)
--- NOTE | 2025-01-15 15:47 | DVHHP2 ---
History of Present Illness Reason for Visit: Seizure History of Present Illness Navi Gambino is a 39-year-old female with past medical history hypertension, anxiety, depression, and hyperlipidemia, who came in due to a seizure. Patient states she remembers trying to eat breakfast, she was having a hard luisa due to sore throat and bump on left side of tongue. The the next thing she can remember is waking up to EMS being at her house. Patient is a poor historian with her medical history. She denies having a history of seizures, but does take Oxcarbazepine and she is not sure why or what her dose. Patient is also prescribed Quetiapine, but she states she doesn't take it as prescribed because she doesn't like the way it makes her feel. Cardiovascular: HTN, hyperipidemia Psych: Anxiety, Depression Past Surgical History: Other (Uterine fibroid removal) Smoke: <1 pack per day ALCOHOL: none Drugs: None Lives: Friends Domestic Violence: Neg Review of Systems Constitutional: No: Fever, Chills, Sweats, Weakness, Malaise, Other Eyes: No: Pain, Vision change, Conjunctivae inflammation, Eyelid inflammation, Other, Redness ENT: No: Ear pain, Ear discharge, Nose pain, Nose discharge, Nose congestion, Mouth pain, Mouth swelling, Throat pain, Throat swelling, Other Respiratory: No: Cough, Dry, Shortness of breath, SOB with excertion, Wheezing, Hemoptysis, Pleuritic Pain, Sputum, Wheezing, Other Cardiovascular: No: Chest Pain, Palpitations, Orthopnea, Paroxysmal Noc. Dyspnea, Edema, Lt Headedness, Other Gastrointestinal: No: Nausea, Vomiting, Abdominal Pain, Diarrhea, Constipation, Melena, Hematochezia, Other Genitourinary: No Dysuria, No Frequency, No Incontinence, No Hematuria, No Retention, No Other Musculoskeletal: No: other, neck pain, shoulder pain, arm pain, back pain, hand pain, leg pain, foot pain Skin: No: Rash, Lesions, Jaundice, Bruising, Other Neurological: Seizures; No: Weakness, Numbness, Incoordination, Change in speech, Confusion, Other Allergies: Coded Allergies: NO KNOWN ALLERGIES (Unverified , 09/30/20) Medications Current Medications Medications Dose Ordered Sig/Antonio Route Start Time Stop Time Status Last Admin Dose Admin Losartan Potassium 25 mg DAILY PO 01/16/25 10:00 UNV Patient Own Medication 1 tab DAILY PO 01/16/25 10:00 UNV Patient Own Medication 1 tab BID PO 01/15/25 22:00 UNV Patient Own Medication 1 tab DAILY PO 01/16/25 10:00 UNV Exam Vital Signs Vital Signs Date Time Temp Pulse Resp B/P (MAP) Pulse Ox O2 Delivery O2 Flow Rate FiO2 01/15/25 15:00 90 16 145/104 (118) 98 01/15/25 13:00 98.0 98.0 01/15/25 11:25 Room Air* 0 21 General Appearance: Alert, Oriented X3, Cooperative HEENT: Atraumatic, PERRLA, EOMI, Other (C/O throat pain and pain to side of tongue due to sore) Respiratory: Clear to auscultation, Normal air movement Cardiovascular: Regular rate, Normal S1, Normal S2, No murmurs Abdominal: Normal bowel sounds, Soft, No tenderness, No hepatospenomegaly Extremities: No clubbing, No cyanosis, No edema, Normal pulses Skin: No rashes, No breakdown, No significant lesion Neuro: Normal gait, Normal speech, Strength at 5/5 X4 ext Psych/Mental Status: Mental status NL, Mood NL Labs/Xrays Labs Test 01/15/25 14:37 01/15/25 13:33 01/15/25 12:00 Range/Units Urine Color Light-yellow Yellow Urine Clarity Clear Clear Urine pH 6.0 5.0-9.0 Urine Specific [place] 1.014 1.001-1.035 Urine Protein Trace H Negative Urine Ketones Negative Negative Urine Blood Negative Negative /uL Urine Nitrite Negative Negative Urine Bilirubin Negative Negative Urine Urobilinogen Normal Negative mg/dL Urine Leukocyte Esterase Negative Negative /uL Urine RBC 1 0 - 4 /hpf Urine Microscopic WBC 1 0-5 /HPF Urine Squamous Epithelial Cells Few <5 /hpf Urine Bacteria None seen None Seen /hpf Urine Mucus Few None Seen Urine Glucose Normal Normal mg/dL White Blood Count 5.5 4.4-10.8 10^3/uL Red Blood Count 3.68 L 4.0-5.20 10^6/uL Hemoglobin 10.8 L 12.2-16.2 g/dL Hematocrit 33.1 L 36.0-46.0 % Mean Corpuscular Volume 89.8 80.0-100.0 fL Mean Corpuscular Hemoglobin 29.2 28.0-32.0 pg Mean Corpuscular Hemoglobin Concent 32.6 32.0-36.0 g/dL Red Cell Distribution Width 15.8 H 11.8-14.3 % Platelet Count 185 140-450 10^3/uL Mean Platelet Volume 7.8 6.9-10.8 fL Neutrophils (%) (Auto) 55.0 37.0-80.0 % Lymphocytes (%) (Auto) 29.1 10.0-50.0 % Monocytes (%) (Auto) 14.9 H 0.0-12.0 % Eosinophils (%) (Auto) 0.5 0.0-7.0 % Basophils (%) (Auto) 0.5 0.0-2.0 % Neutrophils # (Auto) 3.0 1.6-8.6 10 ^3/uL Lymphocytes # (Auto) 1.6 0.4-5.4 10 ^3/uL Monocytes # (Auto) 0.8 0-1.3 10 ^3/uL Eosinophils # (Auto) 0 0-0.8 10 ^3/uL Basophils # (Auto) 0 0-0.2 10 ^3/uL Nucleated Red Blood Cells 0.2 % Sodium Level 136 136-145 mmol/L Potassium Level 4.2 3.5-5.1 mmol/L Chloride Level 99 98-107 mmol/L Carbon Dioxide Level 25 20-31 mmol/L Anion Gap 12 5-15 Blood Urea Nitrogen 8 L 9-23 mg/dL Creatinine 0.87 0.550-1.02 mg/dL Glomerular Filtration Rate Calc 87 >90 mL/min BUN/Creatinine Ratio 9.2 L 10.0-20.0 Serum Glucose 93 74-106 mg/dL Calcium Level 10.1 8.7-10.4 mg/dL CT HEAD WITHOUT CONTRAST FINDINGS: There is sulcal and ventricular prominence. The brainshows normal morphology and helms-white matter differentiation, without intracranial hemorrhage, extra-axial fluid collection, mass effect or acute large vessel infarct. The ventricles are normal in size. The basal cisterns are patent. The skull and visible facial bones are intact. The paranasal sinuses, mastoid air cells and middle ear cavities are well-aerated. The soft tissues of the scalp are unremarkable. IMPRESSION: No acute intracranial abnormality. Assessment/Plan Assessment/Plan Assessment: Seizure, Hypertension, Depression, Anxiety, Plan: Admit to Tele, Neurology consult, Consider MRI of brain, Home medications reconciled, Seizure precautions, Plan discussed with: Patient My Orders Orders - SHERRY WARD Procedure Category Date Status Time Losartan Tablet PHA 01/16/25 Logged (Cozaar Tablet) 10:00 (Nf) Fluoxetine Hcl PHA 01/16/25 Logged 10:00 (Nf) Hydroxyzine Hcl PHA 01/15/25 Logged 22:00 (NF) PHA 01/16/25 Logged Olanzapine-Samidorphan 10:00 Losartan Tablet PHA 01/15/25 Verified (Cozaar Tablet) 15:45 Admit ADMIT 01/15/25 Verified 15:32 Code Status CODE 01/15/25 Verified 15:32 2 Gm Sodium Diet DIET 01/15/25 Verified Dinner Sodium Chloride Lock PHA 01/15/25 Verified (Saline Lock Ns) 22:00 Hydrocodone-Acet PHA 01/15/25 Verified 5/325mg Tab ([place] 15:45 Ondansetron Hcl PHA 01/15/25 Verified (Zofran) 15:45 Docusate Sodium PHA 01/15/25 Verified Capsule (Colace 15:45 Complete Blood Count LAB 01/16/25 Verified 04:00 Comprehensive LAB 01/16/25 Verified Metabolic Panel 04:00 Condition: Serious RALPH 01/15/25 Verified 15:32 Acetaminophen Tablet PHA 01/15/25 Verified (Tylenol Tablet) 15:45 Nitroglycerin PHA 01/15/25 Verified Sublingual (Ntrostat 15:45 Date of Service: Jan 15, 2025 Billing Provider: SHERRY WARD Common Visit Codes: [id number] INP/OBS CARE (MOD) SHERRY WARD Jan 15, 2025 15:47
[2025-01-15] MEDS: LOSARTAN POTASSIUM 25 MG TAB PO ONE (16:11)
[2025-01-15] MEDS: THROAT LOZENGES(CEPASTAT) MT PRN (16:17)
--- NOTE | 2025-01-15 16:18 | ECG ---
[facility] Test Date: 2025-01-15 Test Time: 11:06:53 Pat Name: MAHSA FORMAN Department: ER Room: 0290T Gender: F Shop Supervisor: CATHY : 1985 Requested By: DIANE DIXON Order Number: [id number] Reading MD: Jose Huerta Measurements Intervals [place] Rate: 102 P: -18 CO: 164 QRS: -42 QRSD: 144 T: 10 QT: 340 QTc: 443 Interpretive Statements Sinus tachycardia Nonspecific IVCD with LAD Left ventricular hypertrophy Inferior infarct, old Artifact in lead(s) II,III,aVR,aVL,aVF,V1,V6 Electronically Signed On 01-18-2025 21:48:34 PST by Jose Huerta Please click the below link to view image of tracing.
[2025-01-15 19:33] VITALS: PULSE 97; RESP 18; O2SAT 98
[2025-01-15] MEDS: HYDROcodone-ACET 5/325MG TAB PO PRN (19:37)
--- NOTE | 2025-01-15 22:03 | DVHINCON2 ---
Date of service: Jan 15, [address] Francisco Reason for Consultation Seizure History of Present Illness Ms. Gambino is a 39 years old right-handed female with a history of hypertension, diabetes, dyslipidemia, anxiety, depression, bipolar disorder, anemia, she came to the hospital on 01/15/2025 with a chief company of seizure activity. At that time, she is alert and fully oriented, she provided the follo wing history She woke in the morning on 01/15/2025 with a lot of pain in the mouth, she was remembers sitting on a table for breakfast, had problem to eat because of pain in the mouth, but next memory was waking up on the floor, with her family member and EMS personnel around her, confused, with blood in the mouth, he was said to have a event of shaking all over body with loss of consciousness for about 3 minutes. She was never had similar problems previously For several days of time, every day she smells unpleasant odor (not able to further specify) with associated confusion She denies a history of traumatic brain injury, intracranial infection, or family history of seizure disorder She reports taking medication at home, but at that time, she does not remember any of them. According to ER note, the patient was on Trileptal 600 mg daily, a presumed for bipolar disorder [phone], no answer Urinalysis, 01/05/2025: Okay WBC/HB/PLT/MCV, 01/15/2025: 5.5/10.8/185/89.8 BMP, 01/05/2025: ok CT head, 01/15/2025: No acute intracranial abnormality Past Medical History Hypertension, diabetes, dyslipidemia, anemia, anxiety, depression, insomnia Past Surgical History Fibroids Family History: Alcoholism G8 FATHER Diabetes mellitus G8 MOTHER FH: aortic aneurysm G8 MOTHER FH: cirrhosis G8 FATHER FH: rheumatoid arthritis G8 MOTHER Hypercholesterolemia G8 MOTHER Hypertension G8 MOTHER G8 MOTHER G8 FATHER Hypertension G8 MOTHER G8 MOTHER G8 FATHER Family History Hypertension, diabetes, dyslipidemia, aortic aneurysm, alcoholism, rheumatoid arthritis Social History She was smokes, but denies a history of alcohol or recreational substance abuse Allergies: Coded Allergies: NO KNOWN ALLERGIES (Unverified , 09/30/20) Home Meds Active Scripts Furosemide (Lasix) 20 Mg Tb, 1 TAB PO DAILY for 5 Days, #5 TAB 1 Refill Prov:FAMILIA MALDONADO DO 02/17/22 Reported Medications Oxcarbazepine (OXTELLAR XR) 600 Mg Tab, 600 MG PO DAILY 01/15/25 Oxcarbazepine (OXTELLAR XR) 300 Mg Tab, 300 MG PO DAILY 01/15/25 Olanzapine-Samidorphan l-Malat (Lybalvi 5-10 mg) 1 Tab Tab, 1 TAB PO DAILY 01/15/25 Quetiapine Fumerate (QUETIAPINE FUMARATE) 50 Mg Tab, 50 TAB PO BID 01/15/25 Fluoxetine Hcl (FLUOXETINE HCL) 60 Mg Tab, 1 TAB PO DAILY 01/15/25 Hydroxyzine Hcl (Hydroxyzine Hcl) 25 Mg Tab, 1 TAB PO BID 01/15/25 Montelukast Sodium (Singulair) 5 Mg Chw, 10 MG PO, TAB 02/07/22 Gabapentin (Gabapentin) 600 Mg Tab, 600 MG PO DAILY for 30 Days, MG 02/07/22 Losartan Potassium (Losartan Potassium) 25 Mg Tab, 25 MG PO DAILY for 30 Days, MG 02/07/22 Metoprolol Tartrate (Metoprolol Tartrate) 50 Mg Tab, 50 MG PO BID for 30 Days, MG 02/07/22 Discontinued Reported Medications Fluoxetine Hcl (Fluoxetine Hcl) 20 Mg Cap, 1 TAB PO DAILY for 30 Days, MG 05/13/24 Discontinued Scripts Amoxicillin & Pot Clavulanate (AUGMENTIN TABLET) 875 Mg Tb, 875 MG PO BID for 5 Days, #10 TAB Prov:BRYNN ATKINS 07/10/24 Hydrocodone-Acetaminophen (Hydrocodone Bitartrate/AC 5-325 mg) 1 Tab Tab, 1 TAB PO QID, #20 TAB Prov:NUZHAT DOYLE MD 05/15/24 Ondansetron Odt 4MG Tab (ZOFRAN PO) 4 Mg Tb, 4 MG PO QID PRN, #20 TAB ODT TAB-DISSOLVE IN MOUTH, THEN SWALLOW Prov:NUZHAT DOYLE MD 05/15/24 Doxycycline Monohydrate (Doxycycline Monohydrate) 100 Mg Cap, 1 CAP PO BID for 10 Days, #20 CAP Prov:STEPHANIE PALACIOS COMPUTER HARDWARE DEVELOPER 03/12/24 Metronidazole (Metronidazole) 500 Mg Tab, 1 TAB PO TID for 10 Days, #30 TAB Prov:STEPHANIE PALACIOS Q COMPUTER HARDWARE DEVELOPER 03/12/24 Current Medications Current Medications Medications (Trade) Dose Ordered Sig/Antonio Route PRN Reason Start Time Stop Time Status Last Admin Losartan Potassium (Cozaar Tablet) 25 mg DAILY PO 01/16/25 10:00 Fluoxetine HCl (PROzac CAPSULE) 60 mg DAILY PO 01/16/25 10:00 Hydroxyzine Pamoate (Vistaril Oral) 25 mg BID PO 01/15/25 22:00 Patient Own Medication 1 tab DAILY PO 01/16/25 10:00 Sodium Chloride (Saline Lock Ns) 10 ml Q8HR IV 01/15/25 22:00 Acetaminophen/ Hydrocodone Bitart ([place] 5/325MG Tab) 1 tab Q4HP PRN PO MODERATE PAIN (4-6 PAIN SCALE) 01/15/25 15:45 01/15/25 19:37 Ondansetron HCl (Zofran) 4 mg Q4HP PRN IV NAUSEA / VOMITING 01/15/25 15:45 Docusate Sodium (Colace Capsule) 100 mg BIDPRN PRN PO FOR CONSTIPATION 01/15/25 15:45 Acetaminophen (Tylenol Tablet) 650 mg Q6HP PRN PO PAIN SCALE 1-3 OR TEMP>100.4 01/15/25 15:45 Nitroglycerin (Ntrostat Sublingual) 0.4 mg Q5MINP PRN SL FOR CHEST PAIN 01/15/25 15:45 Morphine Sulfate 2 mg Q30M PRN IV FOR CHEST PAIN 01/15/25 15:45 Oxcarbazepine (Trileptal Tablet) 300 mg DAILY PO 01/16/25 10:00 Oxcarbazepine (Trileptal Tablet) 600 mg DAILY PO 01/16/25 10:00 Throat Lozenges (Cepastat Lozenges) 1 marie Q2HP PRN MT FOR SORE THROAT 01/15/25 15:45 01/15/25 20:47 Review of Systems As above, the other systems are negative Vital Signs Vital Signs Date Time Temp Pulse Resp B/P (MAP) Pulse Ox O2 Delivery O2 Flow Rate FiO2 01/15/25 19:33 97 18 98 Room Air* 0 21 01/15/25 19:33 98.8 127/96 (106) 98.8 Physical Exam GENERAL EXAM: General: the patient is well developed and nourished. No acute distress. HEENT: Normocephalic, neck is supple, no carotid bruits. No mass. She has a lot of pain in the mouth and not able to open wide for me to look inside RESPIRATORY: Normal respiratory effort with symmetrical lung expansion. Lungs clear to auscultation. CARDIOVASCULAR: Regular rate and rhythm with no murmurs. S1, S2. ABDOMEN: Soft, nontender, normal bowel sound NEUROLOGICAL: MENTAL STATUS: Awake and alert. Oriented to person, place, time and general circumstances. Able to give personal history. SPEECH, LANGUAGE, HIGHER CORTICAL FUNCTION: no aphasia, she was slurred speech because of pain in the mouth CRANIAL NERVES: #2: Intact visual iglesias to confrontation. The optic discs were sharp. #3,4,6: Pupils are equal, round and reactive. EOMs full and conjugate. No nystagmus. #5: Facial sensation intact in all three divisions bilaterally. Mandibular strength intact. #7: Facial muscles symmetrical and strength intact. #8: Hearing grossly normal to voice. #9,10: Uvula and soft palate rise in the midline. Swallow and voice are normal. #11: Trapezius and sternomastoid strength intact bilaterally. #12: Tongue midline. No fasciculations or atrophy. SENSATION: Sensation to touch and pinprick is normal. MOTOR: Normal tone in the upper and lower extremity. Normal muscle bulk. No fasciculations. No abnormal movements or posturing. Muscle strength of the major groups in the upper extremities is 5/5. Muscle strength of the major groups in the lower extremities is 5/5. REFLEXES: Deep tendon reflexes normal and symmetrical. No pathological r eflexes. CEREBELLAR/COORDINATION: Finger to nose is normal bilaterally. GAIT/STATION: deferred. Labs/Diagnostic Data Labs Test 01/15/25 14:37 01/15/25 13:33 01/15/25 12:00 Range/Units Urine Color Light-yellow Yellow Urine Clarity Clear Clear Urine pH 6.0 5.0-9.0 Urine Specific [place] 1.014 1.001-1.035 Urine Protein Trace H Negative Urine Ketones Negative Negative Urine Blood Negative Negative /uL Urine Nitrite Negative Negative Urine Bilirubin Negative Negative Urine Urobilinogen Normal Negative mg/dL Urine Leukocyte Esterase Negative Negative /uL Urine RBC 1 0 - 4 /hpf Urine Microscopic WBC 1 0-5 /HPF Urine Squamous Epithelial Cells Few <5 /hpf Urine Bacteria None seen None Seen /hpf Urine Mucus Few None Seen Urine Glucose Normal Normal mg/dL White Blood Count 5.5 4.4-10.8 10^3/uL Red Blood Count 3.68 L 4.0-5.20 10^6/uL Hemoglobin 10.8 L 12.2-16.2 g/dL Hematocrit 33.1 L 36.0-46.0 % Mean Corpuscular Volume 89.8 80.0-100.0 fL Mean Corpuscular Hemoglobin 29.2 28.0-32.0 pg Mean Corpuscular Hemoglobin Concent 32.6 32.0-36.0 g/dL Red Cell Distribution Width 15.8 H 11.8-14.3 % Platelet Count 185 140-450 10^3/uL Mean Platelet Volume 7.8 6.9-10.8 fL Neutrophils (%) (Auto) 55.0 37.0-80.0 % Lymphocytes (%) (Auto) 29.1 10.0-50.0 % Monocytes (%) (Auto) 14.9 H 0.0-12.0 % Eosinophils (%) (Auto) 0.5 0.0-7.0 % Basophils (%) (Auto) 0.5 0.0-2.0 % Neutrophils # (Auto) 3.0 1.6-8.6 10 ^3/uL Lymphocytes # (Auto) 1.6 0.4-5.4 10 ^3/uL Monocytes # (Auto) 0.8 0-1.3 10 ^3/uL Eosinophils # (Auto) 0 0-0.8 10 ^3/uL Basophils # (Auto) 0 0-0.2 10 ^3/uL Nucleated Red Blood Cells 0.2 % Sodium Level 136 136-145 mmol/L Potassium Level 4.2 3.5-5.1 mmol/L Chloride Level 99 98-107 mmol/L Carbon Dioxide Level 25 20-31 mmol/L Anion Gap 12 5-15 Blood Urea Nitrogen 8 L 9-23 mg/dL Creatinine 0.87 0.550-1.02 mg/dL Glomerular Filtration Rate Calc 87 >90 mL/min BUN/Creatinine Ratio 9.2 L 10.0-20.0 Serum Glucose 93 74-106 mg/dL Calcium Level 10.1 8.7-10.4 mg/dL Assessment New onset grand mal seizure, she likely had had one attack overnight when she was asleep Olfactory hallucination with confusion, likely she has partial complex seizure She was social security, she does not drive or work Plan/Recommendation Monitoring Supportive treatment Telemetry EEG MR brain scan Trileptal 300 mg AM, 600 mg HS Ativan for seizure breakthrough The patient was has been advised to avoid alcohol, sleep deprivation, street drug More recommendation per clinical course Plan discussed with: Patient, Other ANH KINGSLEY MD Jan 15, 2025 22:03
[2025-01-15] MEDS: SODIUM CHLOR 0.9% PF (SALINE LOCK) 10ML VIAL/SYR IV SCH (22:09)
[2025-01-15] MEDS: hydrOXYzine 25 MG TAB or CAP PO SCH (22:09)
[2025-01-15] MEDS ORDERED: LORazepam 2MG/ML-1ML VIAL IV PRN (23:00)
[2025-01-15] MEDS: OXcarbazepine 300 MG TAB PO SCH (23:30)
[2025-01-16 06:43] LABS: Basophils # (auto) 0 10 ^3/uL (0-0.2); Basophils % (auto) 0.4 % (0.0-2.0); Eosinophils # (auto) 0 10 ^3/uL (0-0.8); Eosinophils % (auto) 0.4 % (0.0-7.0); Hematocrit 35.3 % (36.0-46.0); Hemoglobin 11.5 g/dL (12.2-16.2); Lymphocytes # (auto) 1.8 10 ^3/uL (0.4-5.4); Lymphocytes % (auto) 18.5 % (10.0-50.0); Mean Corpuscular Hemoglobin 29.3 pg (28.0-32.0); Mean Corpuscular Hgb Conc. 32.7 g/dL (32.0-36.0); Mean Corpuscular Volume 89.8 fL (80.0-100.0); Monocytes # (auto) 0.9 10 ^3/uL (0-1.3); Neutrophils # (auto) 7.1 10 ^3/uL (1.6-8.6); Neutrophils % (auto) 71.7 % (37.0-80.0); Platelet Count (auto) 184 10^3/uL (140-450); Red Blood Cells 3.93 10^6/uL (4.0-5.20); Red Cell Distribution Width 15.8 % (11.8-14.3); White Blood Cell 9.9 10^3/uL (4.4-10.8)
[2025-01-16 07:02] LABS: Anion Gap 12 (5-15); BUN/Creatinine Ratio 11.7 (10.0-20.0); Calcium 9.9 mg/dL (8.7-10.4); Carbon Dioxide 25 mmol/L (20-31); Chloride 102 mmol/L (98-107); Sodium 139 mmol/L (136-145)
[2025-01-16 07:03] LABS: Albumin 4.7 g/dL (3.2-4.8)
[2025-01-16 07:04] LABS: Bilirubin, Total 0.7 mg/dL (0.2-1.0); Total Protein 7.1 g/dL (5.7-8.2)
[2025-01-16 07:09] LABS: Alanine Aminotransferase 50 U/L (7-40); Alkaline Phosphatase 124 U/L (46-116); Aspartate Aminotransferase 55 U/L (13-40); Blood Urea Nitrogen 7 mg/dL (9-23); Glucose 108 mg/dL (74-106)
[2025-01-16 08:00] VITALS: PULSE 93; RESP 16; O2SAT 97
--- NOTE | 2025-01-16 08:58 | DVH ---
EXAMINATION: MRI BRAIN HEAD WO CONTRAST INDICATION: sz COMPARISON: None TECHNIQUE: Multiplanar, multisequence magnetic resonance imaging of the brain was performed without the use of i ntravenous contrast. FINDINGS: No evidence of acute or remote infarct. No intracranial hemorrhage. No mass effect. There is periventricular/deep white matter T2/FLAIR hyperintensity is nonspecific, but most commonly associated with chronic microvascular disease. The ventricles and sulci are normal in size for age. Clear basal cisterns. Flow voids in the major intracranial vessels are maintained. No abnormality of the orbits. Paranasal sinuses and mastoid air cells are clear. No abnormality of the visualized osseous structures and extracranial soft tissues. IMPRESSION: No acute infarct, intracranial hemorrhage, mass effect, or hydrocephalus.
[2025-01-16] MEDS ORDERED: OXcarbazepine 300 MG TAB PO SCH ×2 (10:00)
[2025-01-16] MEDS: LYBALVI PO SCH (15:07)
[2025-01-16] MEDS: LOSARTAN POTASSIUM 25 MG TAB PO SCH (15:15)
[2025-01-16] MEDS: FLUoxetine HCL 20 MG CAP PO SCH (15:16)
--- NOTE | 2025-01-16 15:29 | DVHPN2 ---
Subjective 39-year-old female with a history of bipolar disorder, diabetes, dyslipidemia, hypertension, she denies history of seizure, was admitted here for seizure Changes from previous H/P or p: Changes Eyes: No Pain, No Vision change, No Conjunctivae inflammation, No Eyelid inflammation, No Other, No Redness ENT: No Ear pain, No Ear discharge, No Nose pain, No Nose discharge, No Nose congestion, No Mouth pain, No Mouth swelling, No Throat pain, No Throat swelling, No Other Cardiovascular: No Chest Pain, No Palpitations, No Orthopnea, No Paroxysmal Noc. Dyspnea, No Edema, No Lt Headedness, No Other Respiratory: No Cough, No Dry, No Shortness of breath, No SOB with excertion, No Wheezing, No Hemoptysis, No Pleuritic Pain, No Sputum, No Other Gastrointestinal: No Nausea, No Vomiting, No Abdominal Pain, No Diarrhea, No Constipation, No Melena, No Hematochezia, No Other Genitourinary: No Dysuria, No Frequency, No Incontinence, No Hematuria, No Retention, No Other Musculoskeletal: No other, No neck pain, No shoulder pain, No arm pain, No back pain, No hand pain, No leg pain, No foot pain Skin: No Rash, No Lesions, No Jaundice, No Bruising, No Other Objective Vitals Vital Signs Date Time Temp Pulse Resp B/P (MAP) Pulse Ox O2 Delivery O2 Flow Rate FiO2 01/16/25 15:15 162/126 01/16/25 15:06 107 18 98 01/16/25 08:00 98.4 98.4 01/15/25 19:33 Room Air* 0 21 Intake/Output Intake and Output 01/16/25 07:00 Intake Total 1000 ml Balance 1000 ml Intake IV Total 1000 ml Medications Current Medications Medications Dose Ordered Sig/Antonio Route Start Time Stop Time Status Last Admin Dose Admin Losartan Potassium 25 mg DAILY PO 01/16/25 10:00 01/16/25 15:15 25 MG Fluoxetine HCl 60 mg DAILY PO 01/16/25 10:00 01/16/25 15:16 60 MG Hydroxyzine Pamoate 25 mg BID PO 01/15/25 22:00 01/16/25 15:16 25 MG Patient Own Medication 1 tab DAILY PO 01/16/25 10:00 Sodium Chloride 10 ml Q8HR IV 01/15/25 22:00 01/16/25 15:08 10 ML Acetaminophen/ Hydrocodone Bitart 1 tab Q4HP PRN PO 01/15/25 15:45 01/16/25 15:16 1 TAB Ondansetron HCl 4 mg Q4HP PRN IV 01/15/25 15:45 Docusate Sodium 100 mg BIDPRN PRN PO 01/15/25 15:45 Acetaminophen 650 mg Q6HP PRN PO 01/15/25 15:45 Nitroglycerin 0.4 mg Q5MINP PRN SL 01/15/25 15:45 Morphine Sulfate 2 mg Q30M PRN IV 01/15/25 15:45 Throat Lozenges 1 jacinto Q2HP PRN MT 01/15/25 15:45 01/15/25 20:47 1 JACINTO Oxcarbazepine 600 mg BID PO 01/15/25 23:00 01/15/25 23:30 600 MG Lorazepam 1 mg Q5MINP PRN IV 01/15/25 23:00 Laboratory Results Laboratory Tests 01/16/25 05:28 Chemistry Test 01/16/25 05:28 Albumin 4.7 g/dL (3.2-4.8) Calcium Level 9.9 mg/dL (8.7-10.4) Total Protein 7.1 g/dL (5.7-8.2) LFT Test 01/16/25 05:28 Alanine Aminotransferase (ALT) 50 U/L (7-40) H Alkaline Phosphatase 124 U/L (46-116) H Aspartate Amino Transferase (AST) 55 U/L (13-40) H Total Bilirubin 0.7 mg/dL (0.2-1.0) Urinalysis Test 01/15/25 14:37 Urine Color Light-yellow (Yellow) Urine Clarity Clear (Clear) Urine pH 6.0 (5.0-9.0) Urine Specific [place] 1.014 (1.001-1.035) Urine Protein Trace (Negative) H Urine Ketones Negative (Negative) Urine Blood Negative /uL (Negative) Urine Nitrite Negative (Negative) Urine Bilirubin Negative (Negative) Urine Urobilinogen Normal mg/dL (Negative) Urine Leukocyte Esterase Negative /uL (Negative) Urine RBC 1 /hpf (0 - 4) Urine Microscopic WBC 1 /HPF (0-5) Urine Squamous Epithelial Cells Few /hpf (<5) Urine Bacteria None seen /hpf (None Seen) Urine Mucus Few (None Seen) Urine Glucose Normal mg/dL (Normal) Assessment/Plan Assessment/Plan Seizures , new onset Bipolar disorder Hypertension Chronic anemia Hypokalemia Elevated liver function tests Plan Neurology consult Trileptal MRI of the brain was done negative EEG Full code Advance directives discussed for 15 minute Plan discussed with: Patient Date of Service: Jan 16, 2025 Billing Provider: TICO ELIZALDE MD Common Visit Codes: [id number] INP/OBS CARE(HIGH) Secondary Visit Codes: [id number] CARE PLAN 30 MINUTES TICO ELIZALDE MD Jan 16, 2025 15:28
[2025-01-16 15:55] VITALS: BP 139/100; PULSE 94; RESP 18; TEMP 98.7; O2SAT 97
[2025-01-16 17:00] VITALS: PULSE 93; RESP 16; O2SAT 98
[2025-01-16] MEDS: POTASSIUM CHL 20 Meq TABLET PO ONE (17:43)
[2025-01-16 20:00] VITALS: PULSE 86; PULSE 90; RESP 16; O2SAT 100
[2025-01-16 21:00] VITALS: BP 149/111; PULSE 90; RESP 16; TEMP 98.7; O2SAT 100
[2025-01-17] VITALS (9 sets, daily range): BP systolic 135–152; BP diastolic 88–112; PULSE 78–89; RESP 17–19; TEMP 98.2–99.1; O2SAT 97–100
[2025-01-17 04:08] LABS: Basophils # (auto) 0 10 ^3/uL (0-0.2); Basophils % (auto) 0.2 % (0.0-2.0); Eosinophils # (auto) 0.1 10 ^3/uL (0-0.8); Eosinophils % (auto) 1.3 % (0.0-7.0); Hematocrit 33.1 % (36.0-46.0); Hemoglobin 10.7 g/dL (12.2-16.2); Lymphocytes # (auto) 1.9 10 ^3/uL (0.4-5.4); Lymphocytes % (auto) 28.1 % (10.0-50.0); Mean Corpuscular Hemoglobin 29.1 pg (28.0-32.0); Mean Corpuscular Hgb Conc. 32.3 g/dL (32.0-36.0); Mean Corpuscular Volume 89.9 fL (80.0-100.0); Monocytes # (auto) 0.9 10 ^3/uL (0-1.3); Monocytes % (auto) 12.5 % (0.0-12.0); Neutrophils # (auto) 3.9 10 ^3/uL (1.6-8.6); Neutrophils % (auto) 57.9 % (37.0-80.0); Nucleated Red Blood Cells % 0.1 %; Platelet Count (auto) 170 10^3/uL (140-450); Red Blood Cells 3.68 10^6/uL (4.0-5.20); Red Cell Distribution Width 15.8 % (11.8-14.3); White Blood Cell 6.8 10^3/uL (4.4-10.8)
[2025-01-17 04:21] LABS: Folate (Folic Acid) 17.55 ng/mL (>5.38)
[2025-01-17 04:22] LABS: Alanine Aminotransferase 37 U/L (7-40); Albumin 4.6 g/dL (3.2-4.8); Alkaline Phosphatase 110 U/L (46-116); Anion Gap 9 (5-15); Aspartate Aminotransferase 34 U/L (13-40); BUN/Creatinine Ratio 11.7 (10.0-20.0); Bilirubin, Total 0.6 mg/dL (0.2-1.0); Calcium 9.6 mg/dL (8.7-10.4); Carbon Dioxide 26 mmol/L (20-31); Chloride 101 mmol/L (98-107); Glucose 98 mg/dL (74-106); Sodium 136 mmol/L (136-145); Total Protein 6.9 g/dL (5.7-8.2)
[2025-01-17 04:39] LABS: Blood Urea Nitrogen 7 mg/dL (9-23); Magnesium 1.3 mg/dL (1.6-2.6); Potassium 3.5 mmol/L (3.5-5.1)
--- NOTE | 2025-01-17 12:02 | DVHPN2 ---
Subjective 39-year-old female with a history of bipolar disorder, diabetes, dyslipidemia, hypertension, she denies history of seizure, was admitted here for seizure Eyes: No Pain, No Vision change, No Conjunctivae inflammation, No Eyelid inflammation, No Other, No Redness ENT: No Ear pain, No Ear discharge, No Nose pain, No Nose discharge, No Nose congestion, No Mouth pain, No Mouth swelling, No Throat pain, No Throat swelling, No Other Cardiovascular: No Chest Pain, No Palpitations, No Orthopnea, No Paroxysmal Noc. Dyspnea, No Edema, No Lt Headedness, No Other Respiratory: No Cough, No Dry, No Shortness of breath, No SOB with excertion, No Wheezing, No Hemoptysis, No Pleuritic Pain, No Sputum, No Other Gastrointestinal: No Nausea, No Vomiting, No Abdominal Pain, No Diarrhea, No Constipation, No Melena, No Hematochezia, No Other Genitourinary: No Dysuria, No Frequency, No Incontinence, No Hematuria, No Retention, No Other Musculoskeletal: No other, No neck pain, No shoulder pain, No arm pain, No back pain, No hand pain, No leg pain, No foot pain Skin: No Rash, No Lesions, No Jaundice, No Bruising, No Other Objective Vitals Vital Signs Date Time Temp Pulse Resp B/P (MAP) Pulse Ox O2 Delivery O2 Flow Rate FiO2 01/17/25 10:20 140/97 01/17/25 09:00 98.7 85 18 99 98.7 01/16/25 20:00 Room Air* 0 21 Intake/Output Intake and Output 01/17/25 07:00 Intake Total 775 ml Balance 775 ml Intake Oral 775 ml # Voids 3 # Bowel Movements 2 Medications Current Medications Medications Dose Ordered Sig/Antonio Route Start Time Stop Time Status Last Admin Dose Admin Losartan Potassium 25 mg DAILY PO 01/16/25 10:00 01/17/25 10:20 25 MG Fluoxetine HCl 60 mg DAILY PO 01/16/25 10:00 01/17/25 10:19 60 MG Hydroxyzine Pamoate 25 mg BID PO 01/15/25 22:00 01/17/25 10:19 25 MG Patient Own Medication 1 tab DAILY PO 01/16/25 10:00 Sodium Chloride 10 ml Q8HR IV 01/15/25 22:00 01/17/25 06:15 10 ML Acetaminophen/ Hydrocodone Bitart 1 tab Q4HP PRN PO 01/15/25 15:45 01/17/25 08:30 1 TAB Ondansetron HCl 4 mg Q4HP PRN IV 01/15/25 15:45 Docusate Sodium 100 mg BIDPRN PRN PO 01/15/25 15:45 Acetaminophen 650 mg Q6HP PRN PO 01/15/25 15:45 Nitroglycerin 0.4 mg Q5MINP PRN SL 01/15/25 15:45 Morphine Sulfate 2 mg Q30M PRN IV 01/15/25 15:45 Throat Lozenges 1 jacinto Q2HP PRN MT 01/15/25 15:45 01/16/25 21:45 1 JACINTO Oxcarbazepine 600 mg BID PO 01/15/25 23:00 01/17/25 10:20 600 MG Lorazepam 1 mg Q5MINP PRN IV 01/15/25 23:00 Laboratory Results Laboratory Tests 01/17/25 03:23 Chemistry Test 01/17/25 03:23 Albumin 4.6 g/dL (3.2-4.8) Calcium Level 9.6 mg/dL (8.7-10.4) Magnesium Level 1.3 mg/dL (1.6-2.6) L Total Protein 6.9 g/dL (5.7-8.2) LFT Test 01/17/25 03:23 Alanine Aminotransferase (ALT) 37 U/L (7-40) Alkaline Phosphatase 110 U/L (46-116) Aspartate Amino Transferase (AST) 34 U/L (13-40) Total Bilirubin 0.6 mg/dL (0.2-1.0) HgA1c, TSH Test 01/17/25 03:23 Thyroid Stimulating Hormone (TSH) 1.41 uIU/mL (0.55-4.78) Urinalysis Test 01/15/25 14:37 Urine Color Light-yellow (Yellow) Urine Clarity Clear (Clear) Urine pH 6.0 (5.0-9.0) Urine Specific [place] 1.014 (1.001-1.035) Urine Protein Trace (Negative) H Urine Ketones Negative (Negative) Urine Blood Negative /uL (Negative) Urine Nitrite Negative (Negative) Urine Bilirubin Negative (Negative) Urine Urobilinogen Normal mg/dL (Negative) Urine Leukocyte Esterase Negative /uL (Negative) Urine RBC 1 /hpf (0 - 4) Urine Microscopic WBC 1 /HPF (0-5) Urine Squamous Epithelial Cells Few /hpf (<5) Urine Bacteria None seen /hpf (None Seen) Urine Mucus Few (None Seen) Urine Glucose Normal mg/dL (Normal) Assessment/Plan Assessment/Plan Seizures , new onset Bipolar disorder Hypertension Chronic anemia Hypokalemia Elevated liver function tests Plan Neurology consult Trileptal MRI of the brain was done negative EEG Full code Advance directives discussed for 15 minute 01/17/2025: Seizures: Continue Trileptal Hypomagnesemia: Replace Neurology consult EEG is pending Plan discussed with: Patient My Orders Orders - TICO ELIZALDE MD Procedure Category Date Status Time Hepatitis B Surface LAB 01/16/25 In Process Antigen 17:18 Hepatitis C Antibody LAB 01/16/25 In Process 17:18 Date of Service: Jan 17, 2025 Billing Provider: TICO ELIZALDE MD Common Visit Codes: [id number] INP/OBS CARE(HIGH) TICO ELIZALDE MD Jan 17, 2025 12:02
[2025-01-17] MEDS: MAGNESIUM SULFATE 1GM/100ML 100 ML IV SCH (15:08)
[2025-01-17] MEDS: MAGNESIUM OXIDE 400 MG TAB PO SCH (21:25)
--- NOTE | 2025-01-17 23:02 | DVHPN2 ---
Progress Note - Dictate Date Seen: Jan 17, 2025 Medical Necessity Reason Pt with a Central, PICC or Fol: No Subjective Ms. Gambino is a 39 years old right-handed female with a history of hypertension, diabetes, dyslipidemia, anxiety, depression, bipolar disorder, anemia, she came to the hospital on 01/15/2025 with a chief company of seizure activity. I have seen and examined the patient, I have discussed with her nurse, she was no new seizure activity or symptoms of olfactory hallucination, tongue is improving New problems Urinalysis, 01/05/2025: Okay WBC/HB/PLT/MCV, 01/15/2025: 5.5/10.8/185/89.8 BMP, 01/05/2025: ok CT head, 01/15/2025: No acute intracranial abnormality MRI head, 01/16/2025: No acute infarct, intracranial hemorrhage, mass effect, or hydrocephalus vital signs Vital Sign Date Time Temp Pulse Resp B/P (MAP) Pulse Ox O2 Delivery O2 Flow Rate FiO2 01/17/25 21:00 98.8 87 17 135/91 (106) 100 98.8 01/17/25 08:30 Room Air* 0 21 Total Intake and Output 01/16/25 01/16/25 01/17/25 15:00 23:00 07:00 Intake Total 775 ml Balance 775 ml medications Current Medications Medications Dose Ordered Sig/Antonio Route Start Time Stop Time Status Last Admin Dose Admin Losartan Potassium 25 mg DAILY PO 01/16/25 10:00 01/17/25 10:20 25 MG Fluoxetine HCl 60 mg DAILY PO 01/16/25 10:00 01/17/25 10:19 60 MG Hydroxyzine Pamoate 25 mg BID PO 01/15/25 22:00 01/17/25 21:26 25 MG Patient Own Medication 1 tab DAILY PO 01/16/25 10:00 Sodium Chloride 10 ml Q8HR IV 01/15/25 22:00 01/17/25 21:23 10 ML Acetaminophen/ Hydrocodone Bitart 1 tab Q4HP PRN PO 01/15/25 15:45 01/17/25 21:26 1 TAB Ondansetron HCl 4 mg Q4HP PRN IV 01/15/25 15:45 Docusate Sodium 100 mg BIDPRN PRN PO 01/15/25 15:45 Acetaminophen 650 mg Q6HP PRN PO 01/15/25 15:45 Nitroglycerin 0.4 mg Q5MINP PRN SL 01/15/25 15:45 Morphine Sulfate 2 mg Q30M PRN IV 01/15/25 15:45 Throat Lozenges 1 jacinto Q2HP PRN MT 01/15/25 15:45 01/17/25 21:28 1 JACINTO Oxcarbazepine 600 mg BID PO 01/15/25 23:00 01/17/25 21:25 600 MG Lorazepam 1 mg Q5MINP PRN IV 01/15/25 23:00 Magnesium Oxide 400 mg BID PO 01/17/25 22:00 01/17/25 21:25 400 MG objective General: the patient is well developed and nourished. No acute distress. MENTAL STATUS: Awake and alert. Oriented to person, place, time and general circumstances. Able to give personal history. SPEECH, LANGUAGE, HIGHER CORTICAL FUNCTION: no aphasia, she was slurred speech because of pain in the mouth CRANIAL NERVES: Intact visual iglesias to confrontation. Pupils are equal, round and reactive. EOMs full and conjugate. No nystagmus. Facial sensation intact in all three divisions bilaterally. Mandibular strength intact. Facial muscles symmetrical and strength intact. SENSATION: Sensation to touch and pinprick is normal. MOTOR: Normal tone in the upper and lower extremity. Normal muscle bulk. No fasciculations. No abnormal movements or posturing. Muscle strength of the major groups in the extremities is 5/5. REFLEXES: Deep tendon reflexes normal and symmetrical. No pathological reflexes. CEREBELLAR/COORDINATION: Finger to nose is normal bilaterally. GAIT/STATION: deferred. laboratory and microbiology Laboratory Tests 01/17/25 03:23 Test 01/17/25 03:23 Range/Units Serum Glucose 98 74-106 mg/dL Problem List New onset grand mal seizure, she likely had had one attack overnight when she was asleep Olfactory hallucination with confusion, likely she has partial complex seizure She was social security, she does not drive or work Assessment/Plan Monitoring Supportive treatment Telemetry EEG Trileptal 600 mg Bid Ativan for seizure breakthrough The patient was has been advised to avoid alcohol, sleep deprivation, street drug More recommendation per clinical course This medical document was created using an electronic medical record system with [employer] dictation system. Although this document has been carefully reviewed, there may still be some phonetic and typographical errors. These areas are purely typographical due to imperfections of the software programs, and do not reflect any compromise in the patient's medical care. Prognosis poor Plan discussed with: Patient, Other ANH KINGSLEY MD Jan 17, 2025 23:02
--- NOTE | 2025-01-18 00:27 | DVHEEG2 ---
Neurology EEG Procedural Note Procedural Note EXAM DATE: 01/17/2025 REFERRING DOCTOR: Dr. Kingsley TECHNIQUE: Eighteen channels of EEG, 2 channels of EOG, and 1 channel of EKG were recorded using the International 10/20 system. CLINICAL DATA: The patient was referred for an EEG evaluation for the evidence of seizure disorder. MEDICATIONS: See the chart BACKGROUND ACTIVITY: There was significant amount of EMG artifacts. While the patient was awake, the background activity consisted of well regulated 11 Hz rhythmic waveforms, symmetrically distributed over both posterior quadrants and was reactive to eye opening. ACTIVATION: Hyperventilation: Not done Photic Stimulation: Not done Sleep: Not seen IMPRESSION: This is a normal EEG. No focal, lateralized, or epileptiform features are noted. If clinically indicated to rule out a seizure disorder, recommend repeat EEG with sleep deprivation. The EKG channel showed a regular heart rate of 90/min[place] [address] ANH KINGSLEY MD Jan 18, 2025 00:27
[2025-01-18 01:00] VITALS: BP 134/86; PULSE 64; RESP 18; TEMP 98.3; O2SAT 98
[2025-01-18 04:49] LABS: Alanine Aminotransferase 31 U/L (7-40); Alkaline Phosphatase 107 U/L (46-116); Anion Gap 10 (5-15); BUN/Creatinine Ratio 8.8 (10.0-20.0); Calcium 10.2 mg/dL (8.7-10.4); Carbon Dioxide 25 mmol/L (20-31); Chloride 102 mmol/L (98-107); Magnesium 1.9 mg/dL (1.6-2.6); Sodium 137 mmol/L (136-145)
[2025-01-18 04:50] LABS: Albumin 4.7 g/dL (3.2-4.8); Aspartate Aminotransferase 27 U/L (13-40); Bilirubin, Total 0.6 mg/dL (0.2-1.0); Total Protein 7.1 g/dL (5.7-8.2)
[2025-01-18 04:57] LABS: Blood Urea Nitrogen 5 mg/dL (9-23); Glucose 110 mg/dL (74-106); Potassium 3.2 mmol/L (3.5-5.1)
[2025-01-18 05:00] VITALS: BP 152/106; PULSE 79; RESP 18; TEMP 98.5; O2SAT 96
[2025-01-18 08:10] VITALS: PULSE 77
[2025-01-18 09:00] VITALS: BP 145/108; PULSE 78; RESP 18; TEMP 98.4; O2SAT 99
[2025-01-18 09:23] LABS: Hepatitis B Surface Antigen Negative (Negative)
[2025-01-18 10:01] LABS: Hepatitis C Antibody Negative (Negative)
[2025-01-18] MEDS ORDERED: OXCA600T3 PO (12:00)
[2025-01-18] MEDS: POTASSIUM CHL 20 Meq TABLET PO ONE (12:01)
--- NOTE | 2025-01-18 12:03 | DVHDS2 ---
Discharge Summary Date of Admission Jan 15, 2025 at 15:32 Date of Discharge: Jan 18, 2025 Labs/Diagnostic Data: Laboratory Results Test 01/18/25 04:05 01/17/25 03:23 01/16/25 05:28 01/15/25 14:37 Sodium Level 137 mmol/L (136-145) Potassium Level 3.2 mmol/L (3.5-5.1) Chloride Level 102 mmol/L (98-107) Carbon Dioxide Level 25 mmol/L (20-31) Anion Gap 10 (5-15) Blood Urea Nitrogen 5 mg/dL (9-23) Creatinine 0.57 mg/dL (0.550-1.02) Glomerular Filtration Rate Calc 118 mL/min (>90) BUN/Creatinine Ratio 8.8 (10.0-20.0) Serum Glucose 110 mg/dL (74-106) Calcium Level 10.2 mg/dL (8.7-10.4) Magnesium Level 1.9 mg/dL (1.6-2.6) Total Bilirubin 0.6 mg/dL (0.2-1.0) Aspartate Amino Transferase (AST) 27 U/L (13-40) Alanine Aminotransferase (ALT) 31 U/L (7-40) Alkaline Phosphatase 107 U/L (46-116) Total Protein 7.1 g/dL (5.7-8.2) Albumin 4.7 g/dL (3.2-4.8) White Blood Count 6.8 10^3/uL (4.4-10.8) Red Blood Count 3.68 10^6/uL (4.0-5.20) Hemoglobin 10.7 g/dL (12.2-16.2) Hematocrit 33.1 % (36.0-46.0) Mean Corpuscular Volume 89.9 fL (80.0-100.0) Mean Corpuscular Hemoglobin 29.1 pg (28.0-32.0) Mean Corpuscular Hemoglobin Concent 32.3 g/dL (32.0-36.0) Red Cell Distribution Width 15.8 % (11.8-14.3) Platelet Count 170 10^3/uL (140-450) Mean Platelet Volume 8.3 fL (6.9-10.8) Neutrophils (%) (Auto) 57.9 % (37.0-80.0) Lymphocytes (%) (Auto) 28.1 % (10.0-50.0) Monocytes (%) (Auto) 12.5 % (0.0-12.0) Eosinophils (%) (Auto) 1.3 % (0.0-7.0) Basophils (%) (Auto) 0.2 % (0.0-2.0) Neutrophils # (Auto) 3.9 10 ^3/uL (1.6-8.6) Lymphocytes # (Auto) 1.9 10 ^3/uL (0.4-5.4) Monocytes # (Auto) 0.9 10 ^3/uL (0-1.3) Eosinophils # (Auto) 0.1 10 ^3/uL (0-0.8) Basophils # (Auto) 0 10 ^3/uL (0-0.2) Nucleated Red Blood Cells 0.1 % Vitamin B12 Level 283 pg/mL (211-911) Folic Acid 17.55 ng/mL (>5.38) Thyroid Stimulating Hormone (TSH) 1.41 uIU/mL (0.55-4.78) Hepatitis B Surface Antigen Negative (Negative) Hepatitis C Antibody Negative (Negative) Urine Color Light-yellow (Yellow) Urine Clarity Clear (Clear) Urine pH 6.0 (5.0-9.0) Urine Specific [place] 1.014 (1.001-1.035) Urine Protein Trace (Negative) Urine Ketones Negative (Negative) Urine Blood Negative /uL (Negative) Urine Nitrite Negative (Negative) Urine Bilirubin Negative (Negative) Urine Urobilinogen Normal mg/dL (Negative) Urine Leukocyte Esterase Negative /uL (Negative) Urine RBC 1 /hpf (0 - 4) Urine Microscopic WBC 1 /HPF (0-5) Urine Squamous Epithelial Cells Few /hpf (<5) Urine Bacteria None seen /hpf (None Seen) Urine Mucus Few (None Seen) Urine Glucose Normal mg/dL (Normal) Other Laboratory Tests 01/18/25 04:05 01/17/25 03:23 Brief Hx & Hospital Course: Final diagnoses: Seizures , new onset Bipolar disorder Hypertension Chronic anemia Hypokalemia Elevated liver function tests 39-year-old female who was taking Trileptal for bipolar disorder had 2 seizures and therefore she was admitted to the hospital Workup included a CT scan of the head and MRI which were negative She was seen by Neurology who recommended to increase Trileptal to 600 mg twice a day She had no more seizures here in the hospital She is stable Had an EEG which was negative She can be discharged home on Trileptal 600 mg twice a day and the rest of her home medications and follow up with the primary care physician as soon as possible Condition at Discharge: Stable Final Diagnosis/Problems List Seizures , new onset Bipolar disorder Hypertension Chronic anemia Hypokalemia Elevated liver function tests Discharge Disposition: Home SNF Discharge Will this Physician continue t: No Discharge Instruct/Medications Diet: Cardiac 2g Na,low cholest Activity: No Restrictions, As Tolerated Medications: Increase Trileptal to 600 mg twice a day Resume other home medications Discharge Statement: "Patient was advised to return to the ER or call 911 if any headaches, dizziness, shortness of breath, chest pain, abdominal pain, bleeding, fevers, or worsening of medical condition. Patient was counseled about treatment plan, medications, possible side effects, patientverbalized understanding. All questions were answered to the best of my ability. This discharge took greater then 30 minutes in planning, reviewing documentation, counseling the patient, and discussing with other team members." ASSESSMENT ASSESSMENT Assessment Seizures , new onset Bipolar disorder Hypertension Chronic anemia Hypokalemia Elevated liver function tests Date of Service: Jan 18, 2025 Billing Provider: TICO ELIZALDE MD Common Visit Codes: 54581-EWI/OBS DISCH DAY >30min TICO ELIZALDE MD Jan 18, 2025 12:03
[2025-01-18 13:04] VITALS: BP 152/106; PULSE 87; RESP 16; TEMP 98.1; O2SAT 100
== END 2025-01-18 14:05 | disposition home or self-care (01) | DRG 53 ==
LOC: ER 10:58 → EDBD 10:58 → OVERFLOW 15:32 → TELE-WESTW 01-16 15:44
PROVIDERS: ADMIT Internal Medicine Geriatric Medicine; ATTEND Internal Medicine Geriatric Medicine
DX: G40.409 Other generalized epilepsy and epileptic syndromes, not intractable, without status epilepticus (principal); D64.9 Anemia, unspecified; E11.9 Type 2 diabetes mellitus without complications; E87.6 Hypokalemia; E78.5 Hyperlipidemia, unspecified; F31.9 Bipolar disorder, unspecified; I10 Essential (primary) hypertension; F41.9 Anxiety disorder, unspecified; F17.210 Nicotine dependence, cigarettes, uncomplicated; Z83.3 Family history of diabetes mellitus; Z82.49 Family history of ischemic heart disease and other diseases of the circulatory system; Z79.899 Other long term (current) drug therapy
CPT/HCPCS: 36415; 70450; 70551; 80048; 80053; 81001; 82607; 82746; 83735; 84443; 85025; 86803; 87340; 93005; 95819; 96360; G0378

== ENCOUNTER 2025-09-17 14:13 | Emergency (ER) | payer MEDICAID ==
[~2025-09-17] VITALS: Ht 175.3 cm; Wt 58.6 kg
[~2025-09-17 14:13] MED LIST changes: -AUG875T PO; -DOXY1CAP57 PO; -FLUO-125 PO; +FLUO60TA PO; +HYDR-3682 PO; -HYDR-4902 PO; -MET500T PO; +OLAN1TAB82 PO; +OXCA600T3 PO; +QUET50TA27 PO; -ZOFR4T PO
[2025-09-17 14:15] VITALS: BP 148/104; PULSE 108; RESP 18; TEMP 98.7; O2SAT 98
[2025-09-17 16:15] LABS: Urine Protein, UAD Negative (Negative)
--- NOTE | 2025-09-17 16:58 | ED.PDOC ---
History of Present Illness(SKN HPI Comments 40-year-old female presents to the ER with the chief complaint of a routine wellness check. Patient currently has no concerns or any symptoms at this time. Chief Complaint: Post Exposure Time Seen by MD: 16:55 Primary Care Provider: UNKNOWN History of Present Illness: Nurses Notes, Medications, Allergies Allergies: Coded Allergies: NO KNOWN ALLERGIES (Unverified , 09/30/20) Home Meds Active Scripts Metronidazole (Metronidazole) 500 Mg Tab, 500 MG PO BID for 7 Days, #14 TAB 0 Refills Prov:SOUMYA CORONEL HE[employer] TECHNICAL WRITER 09/17/25 Oxcarbazepine (Trileptal) 600 Mg Tab, 1 TAB PO BID, #60 TAB 5 Refills Prov:TICO ELIZALDE MD 01/18/25 Furosemide (Lasix) 20 Mg Tb, 1 TAB PO DAILY for 5 Days, #5 TAB 1 Refill Prov:FAMILIA MALDONADO DO 02/17/22 Reported Medications Olanzapine-Samidorphan l-Malat (Lybalvi 5-10 mg) 1 Tab Tab, 1 TAB PO DAILY 01/15/25 Quetiapine Fumerate (QUETIAPINE FUMARATE) 50 Mg Tab, 50 TAB PO BID 01/15/25 Fluoxetine Hcl (FLUOXETINE HCL) 60 Mg Tab, 1 TAB PO DAILY 01/15/25 Hydroxyzine Hcl (Hydroxyzine Hcl) 25 Mg Tab, 1 TAB PO BID 01/15/25 Montelukast Sodium (Singulair) 5 Mg Chw, 10 MG PO, TAB 02/07/22 Gabapentin (Gabapentin) 600 Mg Tab, 600 MG PO DAILY for 30 Days, MG 02/07/22 Losartan Potassium (Losartan Potassium) 25 Mg Tab, 25 MG PO DAILY for 30 Days, MG 02/07/22 Metoprolol Tartrate (Metoprolol Tartrate) 50 Mg Tab, 50 MG PO BID for 30 Days, MG 02/07/22 Information Source: Patient Mode of Arrival: Ambulatory Severity: Moderate Duration: Since onset Prehospital treatment: None Object: None Condition of Object: None Wound Type: None Tetanus: Unknown History of: None Associated Signs and Symptoms: None Past Medical History PAST MEDICAL HISTORY: Anemia, Anxiety, Depression, DM, High Lipids, HTN Surgical History: Denies all surgeries WELDER HELPER History: Uterine Fibroids Family History Family History: Reviewed,noncontributory to illness, Unknown Social History Smoker: Cigarettes Alcohol: Occasionally Drugs: Marijuana Lives In: Home Constitutional: denies: chills, diaphoresis, fatigue, fever, malaise, sweats, weakness, others EENTM: denies: blurred vision, double vision, ear bleeding, ear discharge, ear drainage, ear pain, ear ringing, eye pain, eye redness, hearing loss, mouth pain, mouth swelling, nasal discharge, nose bleeding, nose congestion, nose pain, photophobia, tearing, throat pain, throat swelling, voice changes, others Respiratory: denies: cough, hemoptysis, orthopnea, SOB at rest, shortness of breath, SOB with excertion, stridor, wheezing, others Cardiovascular: denies: chest pain, dizzy spells, diaphoresis, Dyspnea on exertion, edema, irregular heart beat, left arm pain, lightheadedness, palpitations, PND, syncope, others Gastrointestinal: denies: abdomen distended, abdominal pain, blood streaked bowels, constipated, diarrhea, dysphagia, difficulty swallowing, hematemesis, melena, nausea, poor appetite, poor fluid intake, rectal bleeding, rectal pain, vomiting, others Genitourinary: denies: abnormal vagina bleeding, burning, dyspareunia, dysuria, flank pain, frequency, hematuria, incontinence, pain, , vagina discharge, urgency, others Neurological: denies: dizziness, fainting, headache, left sided numbness, left sided weakness, numbness, paresthesia, pre-existing deficit, right sided numbness, right sided weakness, seizure, speech problems, tingling, tremors, weakness, others Musculoskeletal: denies: back pain, gout, joint pain, joint swelling, muscle pain, muscle stiffness, neck pain, others Integumetry: denies: bruises, change in color, change in hair/nails, dryness, laceration, lesions, lumps, rash, wounds, others Allergic/Immunocompromised: denies: Difficulty Healing, Frequent Infections, Hives, Itching, others Hematologic/Lymphatic: denies: anemia, blood clots, easy bleeding, easy bruising, swollen glands, others Endocrine: denies: excessive hunger, excessive sweating, excessive thirst, excessive urination, flushing, intolerance to cold, intolerance to heat, unexplained weight gain, unexplained weight loss, others Psychiatric: denies: anxiety, bipolar disorder, depression, hopeless, panic disorder, schizophrenia, sleepless, suicidal, others All Other Systems: Reviewed and Negative Physical Exam General Appearance: No Apparent Distress, Normal HEENT: Normal ENT Inspection, Pharynx Normal, TMs Normal Neck: Full Range of Motion, Non-Tender, Normal, Normal Inspection Respiratory: Chest Non-Tender, Lungs Clear, No Accessory Muscle Use, No Respiratory Distress, Normal Breath Sounds Cardiovascular: No Edema, No JVD, No Murmur, No Gallop, Normal Peripheral Pulses, Regular Rate/Rhythm Breast Exam: Deferred Gastrointestinal: No Organomegaly, Non Tender, No Pulsatile Mass, Normal Bowel Sounds, Soft Genitalia: Deferred Pelvic: Deferred Rectal: Deferred Extremities: No calf tenderness, Normal capillary refill, Normal inspection, Normal range of motion, Non-tender, No pedal edema Musculoskeletal : Apperance: Normal Neurologic: Alert, delinquent account clerk II-XII nml as Tested, No Motor Deficits, Normal Affect, Normal Mood, No Sensory Deficits Cerebellar Function: Normal Reflexes: Normal Skin: Dry, Normal Color, Warm Lymphatic: No Adenopathy Was a procedure done? Was a procedure done?: No Differential Diagnosis (INTG) Differential Diagnosis: N/A Differential Diagnosis: AIDS/HIV Differential Diagnosis: N/A Abscess: N/A Differential Diagnosis: N/A X-Ray, Labs, Meds, VS Vital Signs Date Time Temp Pulse Resp B/P (MAP) Pulse Ox O2 Delivery O2 Flow Rate FiO2 09/17/25 14:15 98.7 108 18 148/104 98 98.7 Lab Test 09/17/25 16:56 09/17/25 16:01 Range/Units Vaginal WBC (Wet Prep) Rare Vaginal RBC (Wet Prep) None seen Vaginal Epithelial Cells (Wet Prep) Many Vaginal Bacteria (Wet Prep) Moderate Vaginal Trichomonas (Wet Prep) Not present Vaginal Yeast (Wet Prep) None seen Vaginal Clue Cells (Wet Prep) None seen Urine Color Colorless Yellow Urine Clarity Clear Clear Urine pH 5.5 5.0-9.0 Urine Specific [place] 1.007 1.001-1.035 Urine Protein Negative Negative Urine Ketones Negative Negative Urine Blood Negative Negative /uL Urine Nitrite Negative Negative Urine Bilirubin Negative Negative Urine Urobilinogen Normal Negative mg/dL Urine Leukocyte Esterase Negative Negative /uL Urine RBC None seen 0 - 4 /hpf Urine Microscopic WBC < 1 0-5 /HPF Urine Squamous Epithelial Cells Few <5 /hpf Urine Bacteria None seen None Seen /hpf Urine Glucose Normal Normal mg/dL Urine Test Negative Negative Hepatitis B Surface Antigen Pending Hepatitis B Surface Antibody Pending Hepatitis C Antibody Pending HIV (1&2) Antibody Negative Negative X-Ray, Labs, Meds, VS Comment 40-year-old female presents to the ER with the chief complaint of a routine wellness check. Patient arrives alert and oriented, ABC's intact, afebrile, vital signs stable, saturating well in room air Peripheral IV insertion+ labs were ordered. test, wet mount, HIV one and two antibody, hepatitis B, hepatitis-C Urinalysis was ordered to rule out UTI or hematuria. Prescribed p.o. antibiotics for presentation of symptoms Complete course of antibiotic therapy even if symptoms improve or resolve. There should be no leftover antibiotics as this can lead to antibiotic resistant bacteria and even worse infection. Patient verbalized understanding. Potential side effects discussed with patient including abdominal pain, nausea, diarrhea. Recommended probiotics and return precautions given Patient is stable for discharge at this time. External notes reviewed. Test results and diagnostic imaging interpreted. All diagnostic findings, discharge care, education and instructions provided Follow-up with PCP in 2 to 3 days Patient verbalized understanding and agreed to treatment plan Vital signs stable, afebrile, no acute distress noted Patient ambulatory with strong steady gait Advised to return precautions for any new or worsening symptoms, return to ER immediately for re-evaluation Patient is aware that the purpose of this visit was for an acute medical emergency requiring emergent stabilization. Chronic conditions, including malignancies have not been ruled out. Patient is instructed to follow up with PCP as directed and discharge instructions for continued care and workup. If unable to arrange follow-up, patient is to return to the emergency department for reassessment. Patient (parent or legal guardian if applicable) was given verbal and written discharge instructions and acknowledges understanding. Additional MDM Review of External, Non-ED records: External records reviewed. Discussion with independent historian (EMS, family) history obtained from the patient/parents (if applicable) at bedside Chronic conditions affecting care: None Social determinants of health affecting care: None Consideration of admission (observation or admission): I considered escalation of care to admission for this patient, however given the reassuring workup, the patient is safe for outpatient management. Discussion with the Radiology: No Tests considered but not performed: Prescription medication considered but not given: 12 lead EKG interpretation: Time of 1ST Reevaluation: 17:25 Reevaluation 1ST: Improved Patient Education/Counseling: Diagnosis, Treatment, Prognosis Family Education/Counseling: No Family Present SEPSIS Sepsis Screen Date sepsis recognized/suspect: Sep 17, 2025 Time Sepsis recognized/suspect: 1414 Recent Procedure: No On Antibiotic Therapy: No Respiratory Rate >20: No Heart Rate >90: Yes Temp<36 C (96.8 F) or >38.3 C: No SBP <90 or MAP <65 mmHG: No New Acute Mental Status Change: No Is the patient on CPAP, BIPAP,: No Physician Orders Hepatitis B Surface Antibody (09/17/25 15:30) Hepatitis B Surface Antigen (09/17/25 15:30) Hepatitis C Antibody (09/17/25 15:30) Vital Signs Date Time Temp Pulse Resp B/P (MAP) Pulse Ox O2 Delivery O2 Flow Rate FiO2 09/17/25 14:15 98.7 108 18 148/104 98 98.7 Departure 1 Departure Time of Disposition: 17:53 Impression: Primary Impression: Bacterial vaginosis Disposition: 01 HOME / SELF CARE / HOMELESS Condition: Stable e-Prescriptions Metronidazole (Metronidazole) 500 Mg Tab 500 MG PO BID for 7 Days, #14 TAB 0 Refills Prov: SOUMYA CORONEL NP 09/17/25 Discharged With: Self Critical Care Note Critical Care Time?: No Stability Stability form required: No I personally scribed for SOUMYA CORONEL NP ([email or web address]) on 09/17/25 at 16:58. Electronically submitted by Craig Garay ([email or web address]). SOUMYA CORONEL NP Sep 17, 2025 16:58
[2025-09-17 17:43] LABS: Vaginal Trichomonas Not Present
[2025-09-17 17:44] LABS: Vaginal Bacteria Moderate; Vaginal Clue Cells None Seen; Vaginal Epithelial Cells Many
[2025-09-17] MEDS ORDERED: MET500T PO (17:54)
[2025-09-19 11:47] LABS: Hepatitis B Surface Antigen Negative (Negative)
== END 2025-09-17 18:06 | disposition home or self-care (01) ==
LOC: ER 14:13
DX: N76.0 Acute vaginitis (principal); F32.A Depression, unspecified; F41.9 Anxiety disorder, unspecified; I10 Essential (primary) hypertension; E11.9 Type 2 diabetes mellitus without complications; F17.210 Nicotine dependence, cigarettes, uncomplicated; B96.89 Other specified bacterial agents as the cause of diseases classified elsewhere; Z86.018 Personal history of other benign neoplasm
CPT/HCPCS: 36415; 81001; 81025; 86703; 86706; 86803; 87210; 87340